=== PATIENT | female | born 1950 | race Caucasian/White ===

== ENCOUNTER 2022-03-12 13:43 | Emergency (ER) | payer MEDICARE, BC, SELFPAY ==
[2022-03-12 15:00] VITALS: BP 178/114; PULSE 104; RESP 22; TEMP 36.8; O2SAT 97; BMI 20.8
--- NOTE | 2022-03-12 15:13 | HMH.EDUTC ---
[facility] Disposition Clinical Impression: Vision disturbance Disposition: Still a Patient Condition on Discharge: Fair Additional Instructions: At this time you have been accepted for transfer at the [facility]. Please drive there for continued evaluation by ophthalmology this afternoon. Referrals: Bereket Dye [Primary Care Provider] - Forms: Transfer Record - ED Time of Disposition: 15:26 Medical Decision Making - Kobi Inquiry Pt receiving controlled substance: No Kobi was queried for this patient: No Vital Signs: 03/12/22 15:00 03/12/22 15:22 03/12/22 15:45 Temperature 98.3 F 98 F Temperature Source Oral Oral Pulse Rate 71 Pulse Rate [Right Brachial] 104 H 75 Respiratory Rate 22 16 Blood Pressure 154/80 H Blood Pressure [Right Arm] 178/114 H 154/80 H Blood Pressure Mean [Right Arm] 135 104 Blood Pressure Source [Right Arm] Automatic Cuff Blood Pressure Position Blood Pressure Position [Right Arm] Sitting Sitting 02 Sat by Pulse Oximetry 97 98 99 Oxygen Delivery Method Room Air Room Air 03/12/22 16:31 Temperature 98 F Temperature Source Oral Pulse Rate 78 Pulse Rate [Right Brachial] Respiratory Rate 16 Blood Pressure 177/94 H Blood Pressure [Right Arm] Blood Pressure Mean [Right Arm] Blood Pressure Source [Right Arm] Blood Pressure Position Sitting Blood Pressure Position [Right Arm] 02 Sat by Pulse Oximetry Oxygen Delivery Method Room Air Medical Decision Narrative: Patient complains of changes in vision in left eye reports started yesterday seeing black spots, floaters, cobwebs/spider leg like squiggly lines in vison and blood pressure found to be elevated Discussed with patient and recommended transfer to the ED for further evaluation and exam and patient agreed Talked with Cynthia SPICER and patient was moved to the ED [facility] HPI - General Stated complaint: feels something in eye Time Seen by Provider: 03/12/22 15:05 Mode of Arrival: Ambulatory Source of Information: Patient, Spouse Limitations: No Limitations Description of Symptoms (Recalled from Triage Doc. by RN): PATIENT STATES THAT SHE WALKING THROUGH THE YARD ON 02/28/22 AND STATES SHE FELT A SNAP IN HER RIGHT LEG. TODAY SHE C/O SWELLING AND BRUSING FROM HER KNEE DOWN TO HER FOOT. SHE ALSO STATES THAT STARTING LAST NIGHT SHE STARTED SEEING SPOTS AND SQUIGGLY LINES/ SPIDER LEGS IN LEFT EYE. HEENT Symptoms (Recalled from RN notes): Yes Resp Symptoms (Recalled from RN notes): No Skin Symptoms (Recalled from RN notes): No MS Symptoms (Recalled from RN notes): Yes Functional Status (Recalled from RN notes): WNL - History of Present Illness Provider Complaint: Patient states that a week or two ago she was walking in the yard and felt like the back of her calf seized up States that she had bruising and pain in her right lower leg from knee down to foot States that she seen someone in Primary Care where they go and they did xray and told her it was a deep tissue bruise States that bruising has continued and not got any better States that yesterday she woke up and she was black spots in her left eye, States that as the day went on it she felt like there was a vail over her eyes like spider legs in her left eye with squiggly lines States that she isnt having any pain in the eye just aggrivating her where she sees the lines - Related Data Allergies Allergy/AdvReac Type Severity Reaction Status Date / Time No Known Allergies Allergy Verified 03/12/22 15:10 - Worker's Comp Is this a Worker's Comp case?: No [facility] History - Hepatitis A Screen Attestation statement:: This patient has been screened for Hepatitis A risk factors. I have reviewed the patient's past medical history: Yes ROS Obtained: Yes All systems reviewed & no additional complaints, Yes Systems reviewed as appropriate & no additional complaints - Constitutional Constitutional: Reports system reviewed and no additional complaints, exce
--- NOTE | 2022-03-12 15:18 | PC.NURSE ---
PATIENT SENT TO ER PER Jerardo BARRERA APRN FOR FURTHER EVALUATION. REPORT GIVEN TO Amisha MUNIZ RN BY Jerardo BARRERA APRN
[2022-03-12 15:22] VITALS: BP 154/80; PULSE 75; RESP 16; TEMP 36.6; O2SAT 98; BMI 18.3
--- NOTE | 2022-03-12 15:35 | PC.NURSE ---
LEIF BRITO at for patient eval
[2022-03-12 15:45] VITALS: BP 154/80; PULSE 71; O2SAT 99
--- NOTE | 2022-03-12 15:53 | HMH.EDGENADL ---
ED Disposition Clinical Impression: Vision disturbance Disposition: Still a Patient Condition on Discharge: Good Additional Instructions: At this time you have been accepted for transfer at the [facility]. Please drive there for continued evaluation by ophthalmology this afternoon. Referrals: Bereket Dye [Primary Care Provider] - - Critical Care Critical Care Time: No Attestation: On 03/12/22, the high probability of a clinically significant, sudden or life threatening deterioration of the following system(s) required my full and direct attention, intervention and personal management. The time I documented below is in addition to time spent performing reported procedures but includes the following listed in this critical care notation. Medical Decision Making - Kobi Inquiry Pt receiving controlled substance: No Vital Signs: 03/12/22 15:00 03/12/22 15:22 Temperature 98.3 F 98 F Temperature Source Oral Oral Pulse Rate [Right Brachial] 104 H 75 Respiratory Rate 22 16 Blood Pressure [Right Arm] 178/114 H 154/80 H Blood Pressure Mean [Right Arm] 135 104 Blood Pressure Source [Right Arm] Automatic Cuff Blood Pressure Position [Right Arm] Sitting Sitting 02 Sat by Pulse Oximetry 97 98 Oxygen Delivery Method Room Air Room Air Medical Decision Narrative: In summary this is a 71-year-old female with past medical history described above who presents emergency department for acute left visual change. Patient is hemodynamically stable nontoxic-appearing upon arrival with a nonfocal neurologic exam. Acute visual deficit in the left eye with 20/200 vision, 20/25 in the right eye corrected. Fluorescein uptake was negative. Intraocular pressure could not be performed due to [place]-Pen being broken. The case was discussed with ophthalmology and they will accept the patient as an ED to ED transfer for further evaluation at this time at the [facility]. General Adult HPI - General Chief complaint: Eye Problems Stated complaint: feels something in eye Time Seen by Provider: 03/12/22 15:45 Mode of Arrival: Ambulatory Source of Information: Patient, Spouse Limitations: No Limitations Description of Symptoms (Recalled from ER Triage Doc. by RN): PATIENT STATES THAT SHE WALKING THROUGH THE YARD ON 02/28/22 AND STATES SHE FELT A SNAP IN HER RIGHT LEG. TODAY SHE C/O SWELLING AND BRUSING FROM HER KNEE DOWN TO HER FOOT. SHE ALSO STATES THAT STARTING LAST NIGHT SHE STARTED SEEING SPOTS AND SQUIGGLY LINES/ SPIDER LEGS IN LEFT EYE. - History of Present Illness HPI narrative: Patient is a 71-year-old female with no pertinent past medical history presents emergency department for evaluation of left eye irregularities. Onset was acute, occurring yesterday morning. She has had waxing and waning floaters in her left visual field of her left eye as well as intermittent ruffled vision on her left. Symptoms have waxed and waned however due to progressive worsening nature she presents here for continued evaluation. Patient denies acute difficulty with speech, difficulty moving arms and legs. She does have a subacute bruise on her right lower extremity which is healing from approximately 2 weeks ago. No other acute complaints at this time. - Related Data Allergies Allergy/AdvReac Type Severity Reaction Status Date / Time No Known Allergies Allergy Verified 03/12/22 15:10 [facility] History - Hepatitis A Screen Attestation statement:: This patient has been screened for Hepatitis A risk factors. I have reviewed the patient's past medical history: Yes ROS Obtained: Yes All systems reviewed & no additional complaints Physical Exam - General General appearance: alert, in no apparent distress - Head Head exam: atraumatic - Eye Eye exam: Present: normal appearance, PERRL, EOMI, other (No fluorescein uptake) - ENT ENT exam: Present: mucous membranes moist - Neck Neck exam: Present: normal inspec
--- NOTE | 2022-03-12 15:53 | PC.NURSE ---
Contacting [facility] at this time
--- NOTE | 2022-03-12 15:56 | PC.NURSE ---
Dr. Flores speaking with Dr. Wei, ophthalmology at this time
--- NOTE | 2022-03-12 15:56 | PC.NURSE ---
visual acuity rt eye 20/25 -2 with correction, lt 20/200 -1 with correction
--- NOTE | 2022-03-12 16:30 | PC.NURSE ---
report called to tobin maria
[2022-03-12 16:31] VITALS: BP 177/94; PULSE 78; RESP 16; TEMP 36.6; O2SAT 98
== END 2022-03-12 16:33 | disposition still patient (30) ==
LOC: UTC 13:54 → ER 15:19
PROVIDERS: Emergency Provider Nurse Practitioner; PCP Family Medicine
DX: H53.9 Unspecified visual disturbance (principal)
CPT/HCPCS: 99282

== ENCOUNTER → 2022-04-25 15:32 | Outpatient (CLI) | payer MEDICARE, BC, SELFPAY ==
[2022-04-25 14:58] LABS: Basophils % 0.6 % (0.1-2.0); Eosinophils # 0.1 K/mm3 (0.0-0.4); Eosinophils % 1.1 % (0.1-12.0); Hematocrit 45.4 % (37.0-47.0); Hemoglobin 14.1 g/dL (12.2-16.2); Lymphocytes # 1.9 K/mm3 (0.7-4.5); Mean Corpuscular Hemoglobin 30.2 pg (27.0-31.2); Mean Corpuscular Volume 97.4 fl (81-99); Mean Platelet Volume 7.2 fl (7.4-10.4); Monocytes # 0.3 K/mm3 (0.1-1.0); Neutrophils % 64.3 % (37.0-80.0); Platelet Count 303 K/mm3 (142-424); Red Blood Count 4.66 M/mm3 (4.20-5.40); Red Cell Distribution Width 12.4 % (11.5-17.5); White Blood Count 6.2 K/mm3 (4.8-10.8)
[2022-04-25 15:03] LABS: Alanine Aminotransferase 25 U/L (12-78); Albumin Level 4.8 g/dl (3.5-5.0); Albumin/Globulin Ratio 1.7 (1.1-1.8); Alkaline Phosphatase 98 U/L (38-126); Anion Gap 13.7 mEq/L (5-15); Aspartate Amino Transferase 43 U/L (14-36); Bilirubin,Total 0.3 mg/dl (0.2-1.3); Blood Urea Nitrogen 17 mg/dl (7-17); Calcium 10.1 mg/dl (8.4-10.2); Carbon Dioxide 30 mmol/L (22.0-30.0); Chloride 95 mmol/L (98-107); Cholesterol 207 mg/dl (140-200); Estimated Glomerular Filt Rate 121 ml/min (>60); GFR (African American) 147 ML/MIN (>60); Globulin 2.9 g/dL (1.3-3.2); Glucose 90 mg/dl (74-100); Potassium 3.7 mmoL/L (3.5-5.1); Sodium 135 mmol/L (136-145); Total Protein,Serum 7.7 g/dl (6.3-8.2); Triglycerides 71 mg/dl (30-150); VLDL Cholesterol 14 mg/dL (0-40)
[2022-04-25 15:10] LABS: HDL Cholesterol 113 mg/dl (40-60)
[2022-04-25 15:20] LABS: Direct LDL Cholesterol 77.51 mg/dL (100-129)
[2022-04-25 15:33] LABS: Thyroid Stimulating Hormone 1.01 uIU/mL (0.465-4.68)
== END ==
PROVIDERS: PCP Family Medicine; Visit Provider Family Medicine
DX: I10 Essential (primary) hypertension (principal); Z00.00 Encounter for general adult medical examination without abnormal findings; Z79.899 Other long term (current) drug therapy
CPT/HCPCS: 80053; 80061; 84443; 85025

== ENCOUNTER 2022-08-16 08:15 | Emergency (ER) | payer MEDICARE, BC, SELFPAY ==
[2022-08-16] VITALS (11 sets, daily range): BP systolic 118–144; BP diastolic 62–71; PULSE 77–87; RESP 18–19; TEMP 37; O2SAT 99–100; BMI 18.1
[2022-08-16 08:35] LABS: Basophils # 0.1 K/mm3 (0-0.2); Basophils % 0.6 % (0.1-2.0); Eosinophils # 0.1 K/mm3 (0.0-0.4); Eosinophils % 0.5 % (0.1-12.0); Hematocrit 41.7 % (37.0-47.0); Hemoglobin 14.1 g/dL (12.2-16.2); Lymphocytes # 0.9 K/mm3 (0.7-4.5); Lymphocytes % 8.4 % (10-50); Mean Corpuscular HGB Conc 33.7 g/dL (31.8-35.4); Mean Corpuscular Hemoglobin 31.7 pg (27.0-31.2); Mean Corpuscular Volume 94.2 fl (81-99); Mean Platelet Volume 7.6 fl (7.4-10.4); Monocytes # 0.2 K/mm3 (0.1-1.0); Monocytes % 1.6 % (1.7-9.3); Neutrophils # 9.2 K/mm3 (1.8-7.8); Neutrophils % 88.9 % (37.0-80.0); Platelet Count 350 K/mm3 (142-424); Red Blood Count 4.43 M/mm3 (4.20-5.40); White Blood Count 10.4 K/mm3 (4.8-10.8)
--- NOTE | 2022-08-16 08:35 | CT_ITS ---
FINAL REPORT TECHNIQUE: Thin section axial images were obtained through the abdomen after intravenous contrast. Reconstruction images were obtained from the axial data. Exam was performed using dose reduction techniques. CLINICAL HISTORY: right-sided abdominal pain COMPARISON: none FINDINGS: The lung bases are clear. The liver is homogeneous. The gallbladder is present. The spleen, adrenal glands, and pancreas are unremarkable. There is very mild hydronephrosis and hydroureter to the level of the pelvis. No obstructing stone identified. Abdominal GI tract is without small-bowel obstruction. There is no abdominal lymphadenopathy or ascites. The uterus is absent. There is a moderate to large amount of retained stool in the proximal portions of the colon and in the rectum. There is fecalization of the distal small bowel loops. There are decompressed thick-walled small bowel loops in the pelvis. The appendix is not visualized. The more proximal small bowel loops are not dilated. There is mesenteric edema and mesenteric fluid within the pelvis. The sigmoid colon is mildly thickened. There is no pelvic lymphadenopathy or ascites. No acute osseous abnormalities identified. IMPRESSION: Thickened decompressed small bowel loops in the pelvis with associated mesenteric edema and fluid. Etiology is unclear. This could be related to infectious or inflammatory enteritis. Ischemia is felt unlikely. Appendix is not visualized. Appendicitis is difficult to completely exclude. Mild right hydronephrosis and hydroureter to the level of inflammatory bowel loops in the pelvis. Reviewed, Interpreted and Dictated by Zeynep Stone MD Transcribed by Lucy Stallworth Authenticated and . [facility]
--- NOTE | 2022-08-16 08:35 | US_ITS ---
FINAL REPORT TECHNIQUE: Sonographic images of the right upper quadrant were obtained. CLINICAL HISTORY: R sided abdo pain FINDINGS: The liver is homogeneous. There is no focal hepatic lesion or intrahepatic biliary dilatation. The gallbladder is well filled. There are no gallstones. There is no pericholecystic fluid collection or gallbladder wall thickening. The common duct measures 4 mm which is within normal limits. The pancreatic tail is partially obscured by bowel gas. Otherwise, it has a normal appearance. The right kidney measures 8.9 cm in [id number] length. No mass is identified. There is very mild hydronephrosis. There is no right upper quadrant ascites. IMPRESSION: No gallstones. Normal common duct. Mild hydronephrosis of uncertain etiology. Reviewed, Interpreted and Dictated by Zeynep Stone MD Transcribed by Cynthia Mcallister Authenticated and [facility]
[2022-08-16 08:38] LABS: Chloride 100 mmol/L (98-107); MANUAL DIFFERENTIAL MANUAL DIFFERENTIAL (MANUAL DIFF); Potassium 3.7 mmoL/L (3.5-5.1); Sodium 135 mmol/L (136-145)
[2022-08-16 08:41] LABS: Alanine Aminotransferase 20 U/L (12-78); Albumin Level 4.9 g/dl (3.5-5.0); Albumin/Globulin Ratio 1.5 (1.1-1.8); Alkaline Phosphatase 80 U/L (38-126); Amylase 102 U/L (30-110); Anion Gap 11.7 mEq/L (5-15); Aspartate Amino Transferase 33 U/L (14-36); Bilirubin,Total 0.5 mg/dl (0.2-1.3); Blood Urea Nitrogen 16 mg/dl (7-17); Calcium 9.9 mg/dl (8.4-10.2); Carbon Dioxide 27 mmol/L (22.0-30.0); Creatinine Clearance Estimated 41 mL/min (50-200); Estimated Glomerular Filt Rate 98 ml/min (>60); GFR (African American) 119 ML/MIN (>60); Globulin 3.3 g/dL (1.3-3.2); Glucose 118 mg/dl (74-100); Lipase 102 U/L (23-300); Total Protein,Serum 8.2 g/dl (6.3-8.2)
[2022-08-16 08:45] LABS: Lymphocytes % 9 % (10-50); Monocytes % 2 % (2-9); Neutrophils % 89 % (42-76); Total Cells Counted 100
[2022-08-16 08:46] LABS: Platelet Estimate Normal; RBC Morphology Normal
--- NOTE | 2022-08-16 08:48 | HMH.EDGENADL ---
Discharge Plan Disposition Patient Disposition: Home, Self-Care Condition: Good Prescriptions Prescriptions: New ciprofloxacin HCl [Cipro] 500 mg tablet 500 mg PO BID Qty: 20 0RF metronidazole 500 mg tablet 500 mg PO TID Qty: 30 0RF No Action hydrochlorothiazide 25 mg tablet 25 mg PO DAILY amlodipine-benazepril [Lotrel] 10-20 mg capsule 1 cap PO DAILY Referrals Follow up/Referrals: Stewart Wood MD [Primary Care Provider] - See instructions Activity Restrictions/Add. Instructions Additional Instructions/Restrictions: Cipro and Flagyl as prescribed. See Dr. Wood on Friday. Additional instructions for ABDOMINAL PAIN: Return immediately if worsening abdominal pain, vomiting, shortness of breath, fever, vomiting of blood or abdominal distention. Urine culture has been performed, results generally take 2 to 3 days. Follow-up the results of this test with your primary care provider within 2 to 3 days. Clinical Impressions Clinical Impression: Enteritis Instructions Patient Instructions: DI for Acute Abdominal Pain, DI for Enteritis Discharge ED Provider: Rajesh Lopez General Adult HPI General Chief complaint: Abdominal Pain Stated complaint: possible Galbladder attack Time Seen by Provider: 08/16/22 08:29 Mode of Arrival: Ambulatory Limitations: No Limitations Description of Symptoms (Recalled from ER Triage Doc. by RN): PT REPORTS GALLBLADDER ATTACK PT REPORT RIGHT SIDED ABDOMINAL PAIN THAT RADIATES TO BACK, WITH CLEAR EMESIS. STARTED ABOUT 0230 THIS AM, PT HAD SIMILAR EPISODE LAST SEPTEMBER. STATES GALLBLADDER HAS SLUDGE, NO STONES History of Present Illness HPI narrative: Patient states she woke up at 2:30 AM with right-sided abdominal pain that radiates to her back. She said she vomited clear emesis, no food in it. She says that it feels the same as when she had a gallbladder attack last year. Her abdomen feels bloated. She denies diarrhea or constipation or urinary symptoms. She denies fever. States that she was seen at [facility] in [place] and had a gallbladder ultrasound and blood work. She says her gallbladder ultrasound showed sludge, but no stones. She says she did not have a HIDA scan or any other testing. She did not have any CAT scans. She says that she went on a diet because of her gallbladder, she says she did not want to have surgery. She has not had a problem since then. She last ate last night. Related Data Home Medications Medication Instructions Recorded Confirmed amlodipine 10 mg-benazepril 20 mg 1 cap PO DAILY High blood pressure 08/16/22 08/16/22 capsule (Lotrel) hydrochlorothiazide 25 mg tablet 25 mg PO DAILY High blood pressure 08/16/22 08/16/22 Previous Rx's Medication Instructions Recorded ciprofloxacin HCl 500 mg tablet 500 mg PO BID #20 tabs 08/16/22 (Cipro) metronidazole 500 mg tablet 500 mg PO TID #30 tabs 08/16/22 Allergies Allergy/AdvReac Type Severity Reaction Status Date / Time No Known Allergies Allergy Verified 06/27/22 09:08 [facility] Disclaimer: The information contained in this section may have been updated after the patient was seen, as this information can be updated by other users. Surgical History H/O total hysterectomy History of knee replacement Hx of appendectomy Social History Smoking Status: Never smoker alcohol intake: never current occupational status: retired Travel in the last 8 weeks: None ROS Obtained: Yes Systems reviewed as appropriate & no additional complaints except as documented Constitutional Constitutional: Denies fever(s), Denies headache(s) and Denies weakness ENT Ears, Nose, Mouth, and Throat: Denies headache(s), Denies nasal discharge and Denies sore throat Cardiovascular Cardiovascular: Denies chest pain Respiratory Respiratory: Denies shortne
--- NOTE | 2022-08-16 08:54 | PC.NURSE ---
PT TO CT THEN TO US AT THIS TIME
--- NOTE | 2022-08-16 09:32 | PC.NURSE ---
PT RETURNED FROM CT AND US
--- NOTE | 2022-08-16 09:40 | PC.NURSE ---
UA COLLECTED AND SENT TO LAB. PT WITHOUT NEEDS OR CONCERNS. AT BEDSIDE. CALL LIGHT WITHIN REACH
[2022-08-16 09:42] LABS: Microscopic, Urine URINE MICROSCOPIC (MICROSCOPIC)
[2022-08-16 09:46] LABS: Appearance,Urine CLEAR (Clear); Bilirubin,Urine Negative (Negative); Blood, Urine TRACE-I (Negative); Color,Urine YELLOW (Yellow); Glucose,Urine (UA) Negative (Negative); Ketones,Urine Negative (Negative); Leukocyte Esterase,Urine 1+ (Negative); Nitrate,Urine Negative (Negative); PH,Urine 8.5 (5.0-8.5); Protein,Urine Negative (Negative); Specific Gravity, Urine 1.015 (1.005-1.030); Urobilinogen,Urine 0.2 EU/dl (0.2)
[2022-08-16 10:04] LABS: Amorphous Sediment,Urine 2+ /lpf; Bacteria,Urine Trace /lpf; WBC,Urine Occasional #/hpf (0-3)
--- NOTE | 2022-08-16 10:13 | PC.NURSE ---
280 ML POST VOID PER BLADDER SCAN, NOTIFIED
--- NOTE | 2022-08-16 10:50 | PC.NURSE ---
DR LANG AT BEDSIDE TO UPDATE PT AND FAMILY
--- NOTE | 2022-08-16 11:03 | PC.NURSE ---
PT MEDICATED PER EMAR, NO FURTHER NEEDS AT THIS TIME
--- NOTE | 2022-08-16 11:26 | PC.NURSE ---
Called for surgeon rehabilitation program coordinator for consult with Dr Lopez
--- NOTE | 2022-08-16 11:29 | PC.NURSE ---
DR LANG SPEAKING WITH DR KENNEDY
--- NOTE | 2022-08-16 11:34 | PC.NURSE ---
DR LANG AT BEDSIDE TO UPDATE PT AFTER SPEAKING WITH DR KENNEDY
--- NOTE | 2022-08-16 11:40 | PC.NURSE ---
Calling Dr Pascual Hdez, Gastro, for consult with Dr Lopez about patient.
--- NOTE | 2022-08-16 12:46 | PC.NURSE ---
Dr Hdez has not returned phone call, have tried to call back 2 more times, with no answer at office.
--- NOTE | 2022-08-16 13:04 | PC.NURSE ---
We were given Dr Hdez cell number [phone], called it left message to call ER and left number. Also called main office number [phone], called several times and left message to call ER, left number again.
--- NOTE | 2022-08-16 13:16 | PC.NURSE ---
Dr Lopez talking to Dr Wood about patient.
--- NOTE | 2022-08-16 13:17 | PC.NURSE ---
Called Dr Hdez again with no answer in office. No answer, no call back from office.
[2022-08-16 13:56] LABS: Erythrocyte Sedimentation Rate 40 mm/hr (0-30)
== END 2022-08-16 13:39 | disposition home or self-care (01) ==
PROVIDERS: Emergency Provider Emergency Medicine; PCP Family Medicine
DX: A09 Infectious gastroenteritis and colitis, unspecified (principal); Z90.710 Acquired absence of both cervix and uterus; Z96.659 Presence of unspecified artificial knee joint; Z90.49 Acquired absence of other specified parts of digestive tract
CPT/HCPCS: 74177; 76705; 80053; 81001; 82150; 83690; 85007; 85025; 85651; 86140; 87086; 96374; 96375; 96376; 99285; J2405; Q9967

== ENCOUNTER → 2022-08-20 10:02 | Outpatient (CLI) | payer MEDICARE, BC, SELFPAY ==
[2022-08-20 10:12] LABS: Adenovirus F 40/41, stool Not Detected (NotDetected); Astrovirus Not Detected (NotDetected); Campylobacter Not Detected (NotDetected); Clostridium Difficile A/B, PCR Not Detected (NotDetected); Cryptosporidium Not Detected (NotDetected); Cyclospora Cayetanesis Not Detected (NotDetected); Entamoeba histolytica Not Detected (NotDetected); Enteroaggregative E coli Not Detected (NotDetected); Enteropathogenic E coli Not Detected (NotDetected); Enterotoxigenic E coli Not Detected (NotDetected); Giardia lamblia Not Detected (NotDetected); Norovirus Not Detected (NotDetected); Plesimonas Shigalloides, PCR Not Detected (NotDetected); Rotavirus A Not Detected (NotDetected); Salmonella, PCR Not Detected (NotDetected); Sapovirus Not Detected (NotDetected); Shiga-like toxin E coli Not Detected (NotDetected); Shigella Enterovasive E coli Not Detected (NotDetected); Vibrio Cholerae Not Detected (NotDetected); Vibrio, PCR Not Detected (NotDetected); Yersinia Entercolitica, PCR Not Detected (NotDetected)
== END ==
PROVIDERS: PCP Emergency Medicine; Visit Provider Emergency Medicine
DX: R19.7 Diarrhea, unspecified (principal)
CPT/HCPCS: 87506

== ENCOUNTER 2022-10-02 09:17 | Day surgery (SDC) | payer MEDICARE, BC, SELFPAY ==
[2022-09-09 12:29] VITALS: BMI 18.1
[2022-10-02 09:44] VITALS: BP 149/75; PULSE 83; RESP 20; TEMP 36.6; O2SAT 98
--- NOTE | 2022-10-02 10:20 | EXP.ANES.CKL ---
[facility] Disclaimer: The information contained in this section may have been updated after the patient was seen, as this information can be updated by other users. Medical History Hypertension Surgical History H/O total hysterectomy History of knee replacement Hx of appendectomy Family History Other Family history of heart disease Family history of hypertension Social History Smoking Status: Never smoker alcohol intake: never substance use type: denies use current occupational status: retired Travel in the last 8 weeks: None household members: spouse housing: house lives independently: Yes marital status: education level: high school caffeine: Yes special sasha needs: No agree to transfusion: No do you feel safe at home: Yes victim of physical abuse: No victim of emotional abuse: No victim of sexual abuse: No would you like helpful sources: No [facility] Anesthesia Checklist Patient Identification Patient Identification: Arm Band and Verbal (Name & ) Structural Data Admitted From: Home Planned Operative Procedure/s: Colonoscopy Consent for Planned Operative Procedure(s) Verified: Yes NPO Status Verified Time NPO: 00:00 Airway Assessment C-Spine Mobility Assessed: Yes TMJ Mobility Assessed: Yes Dentition: Good Dentition Neurological Assessment Level of Consciousness: Awake Hx Seizures: No Numbness or tingling in extremities: No Anesthesia Plan Anesthesia Risk discussed: Yes Anesthesia Plan: Verified ASA Class: II Anesthesia Type: MAC
[2022-10-02 10:28] VITALS: O2SAT 98
--- NOTE | 2022-10-02 10:48 | HMH.SCOPE ---
Procedure: Date: 10/02/22 Patient Date of :: 1950 Procedure Performed:: Colonoscopy Indications:: The patient is a 71 year old who presents for surveillance colonoscopy for a history of colon polyps. The patient also has chronic intermittent lower abdominal pain. Performing Provider:: Vincent Chinchilla MD Referring Provider:: Stewart Wood MD Sedation:: See RN records Procedure:: After placing the patient in the left lateral decubitus position, the colonoscopy was gently inserted into the rectum and under direct visualization advanced to the cecum which was identified by transillumination in the right lower quadrant, identification of the ileocecal valve, appendiceal orifice, and cecal strap. Color, texture, mucosa, and anatomy of the colon were carefully examined with the scope. Findings:: Anal canal: normal Rectum: Internal hemorrhoids, hypertrophic papilla Sigmoid colon: diverticulosis Descending colon: normal without polyps or inflammatory changes Splenic flexure: normal Transverse colon: normal without polyps or inflammatory changes Hepatic flexure: normal Ascending colon: normal without polyps or inflammatory changes Cecum: normal Terminal ileum: not visualized Impression: Sigmoid diverticulosis Tortuous sigmoid and descending colon Recommendations:: Higher fiber diet Dicyclomine 10 mg three to four times per day as needed (prescription was given to patient) Repeat colonoscopy in 5 years Complications:: None Estimated blood obtained (mL): 0
[2022-10-02 10:50] VITALS: BP 77/47; PULSE 73; RESP 16; TEMP 36.1; O2SAT 98
[2022-10-02 11:00] VITALS: BP 75/48; PULSE 79; RESP 17; O2SAT 98
[2022-10-02 11:10] VITALS: BP 92/45; PULSE 76; RESP 16; O2SAT 96
[2022-10-02 11:20] VITALS: BP 108/65; PULSE 75; RESP 16; TEMP 36.4; O2SAT 99
== END 2022-10-02 11:20 | disposition home or self-care (01) ==
PROVIDERS: PCP Family Medicine; Visit Provider Internal Medicine
PROC: 0DJD8ZZ Inspection of Lower Intestinal Tract, Via Natural or Artificial Opening Endoscopic (ICD-10-PCS; CPT 45378; principal; 2022-10-02 10:30)
DX: R10.30 Lower abdominal pain, unspecified (principal); K57.30 Diverticulosis of large intestine without perforation or abscess without bleeding; K64.8 Other hemorrhoids; Z79.899 Other long term (current) drug therapy; Z86.010 Personal history of colon polyps
CPT/HCPCS: G0105

== ENCOUNTER 2022-10-19 21:49 | Observation (INO) | payer MEDICARE, BC, SELFPAY ==
[2022-10-19 21:51] VITALS: BP 153/76; PULSE 99; RESP 17; TEMP 37.1; O2SAT 99; BMI 18.1
--- NOTE | 2022-10-19 21:59 | CT_ITS ---
PROCEDURE INFORMATION: Exam: CT Abdomen And Pelvis With Contrast Exam date and time: 10/19/2022 11:35 PM Age: 71 years old Clinical indication: Abdominal pain; Additional info: Abd pain rght sided TECHNIQUE: Imaging protocol: Computed tomography of the abdomen and pelvis with contrast. Radiation optimization: All CT scans at this facility use at least one of these dose optimization techniques: automated exposure control; mA and/or kV adjustment per patient size (includes targeted exams where dose is matched to clinical indication); or iterative reconstruction. Contrast material: ISOVUE; Contrast volume: 75 ml; Contrast route: IV; REPORTING DATA: Count of CT and Cardiac NM exams in prior 12 months: This patient has received [address] and 0 known cardiac nuclear medicine studies in the 12 months prior to the current study. COMPARISON: CT ABDOMEN PELVIS W CON 08/16/2022 9:22 AM FINDINGS: Liver: Normal. No mass. Gallbladder and bile ducts: Normal. No calcified stones. No ductal dilation. Pancreas: Normal. No ductal dilation. Spleen: Normal. No splenomegaly. Adrenal glands: Normal. No mass. Kidneys and ureters: Mild prominence of the intrarenal collecting structures of the right kidney. No evidence for ear urinary tract calculi. Small 3 mm hypodensity right kidney too small to characterize. Stomach and bowel: Dilated fecalized small bowel loops in the right lower quadrant. Beak like narrowing of small bowel axial image 36/64-66 right lower quadrant. Possible 2nd point transition with small bowel narrowing axial image 3/66. Retained stool in the colon. Scattered colonic diverticula. Appendix: No evidence of appendicitis. Intraperitoneal space: Mesenteric edema/infiltration in the small bowel mesentery. Small amount of fluid in the small bowel mesentery axial image 3/65. Whirling pattern of the vessels in the mesentery image 3/62-66. Vasculature: Unremarkable. No abdominal aortic aneurysm. Lymph nodes: Unremarkable. No enlarged lymph nodes. Urinary bladder: Unremarkable as visualized. Reproductive: Unremarkable as visualized. Bones/joints: Unremarkable. No acute fracture. Soft tissues: Unremarkable. IMPRESSION: 1. No free air or fluid or adenopathy. 2. Dilated fecalized small bowel loops in the right lower quadrant. 3. Mesenteric edema/infiltration in the small bowel mesentery. Small amount of fluid in the small bowel mesentery axial image 3/65. 4. Whirling pattern of the vessels in the mesentery image -. 5. Beak like narrowing of small bowel axial image 36/64-66 right lower quadrant. 6. Possible 2nd point transition with small bowel narrowing axial image . 7. Constellation of findings worrisome for high-grade small bowel obstruction due to twisting/small bowel volvulus with possible concomitant closed-loop obstruction. Surgical consult recommended and close observation. Other (less critical/noncritical/incidental) findings as above; please refer to the body of report for further details. COMMENTS: Consistent with the [employer]'s Incidental Findings Committee white paper (J Am Jenni Radiol 2018): Any incidental renal lesion less than 1 cm or classified as too small to characterize, or any incidental cystic renal lesion characterized as simple-appearing, is likely benign. No follow-up imaging is recommended for these lesions per consensus recommendations based on imaging criteria.
[2022-10-19 22:01] VITALS: BP 140/107; PULSE 96; RESP 18; O2SAT 100; BMI 25.6
[2022-10-19 22:17] LABS: Basophils # 0.1 K/mm3 (0-0.2); Basophils % 0.6 % (0.1-2.0); Eosinophils % 0.4 % (0.1-12.0); Hemoglobin 13.6 g/dL (12.2-16.2); Lymphocytes # 1.4 K/mm3 (0.7-4.5); Mean Corpuscular HGB Conc 33.9 g/dL (31.8-35.4); Mean Corpuscular Volume 91.5 fl (81-99); Mean Platelet Volume 7.4 fl (7.4-10.4); Monocytes # 0.3 K/mm3 (0.1-1.0); Monocytes % 3.1 % (1.7-9.3); Neutrophils # 7.7 K/mm3 (1.8-7.8); Neutrophils % 80.9 % (37.0-80.0); Platelet Count 327 K/mm3 (142-424); Red Blood Count 4.37 M/mm3 (4.20-5.40); Red Cell Distribution Width 12.7 % (11.5-17.5); White Blood Count 9.5 K/mm3 (4.8-10.8)
[2022-10-19 22:20] VITALS: BP 153/76; PULSE 93; RESP 20; O2SAT 100
[2022-10-19 22:21] LABS: Chloride 93 mmol/L (98-107); Potassium 3.5 mmoL/L (3.5-5.1); Sodium 130 mmol/L (136-145)
[2022-10-19 22:23] LABS: Alanine Aminotransferase 23 U/L (12-78); Aspartate Amino Transferase 33 U/L (14-36); Blood Urea Nitrogen 14 mg/dl (7-17); Creatinine Clearance Estimated 51 mL/min (50-200); Estimated Glomerular Filt Rate 98 ml/min (>60); GFR (African American) 119 ML/MIN (>60)
[2022-10-19 22:24] LABS: Albumin/Globulin Ratio 1.8 (1.1-1.8); Alkaline Phosphatase 85 U/L (38-126); Anion Gap 13.5 mEq/L (5-15); Bilirubin,Total 0.4 mg/dl (0.2-1.3); Calcium 9.9 mg/dl (8.4-10.2); Carbon Dioxide 27 mmol/L (22.0-30.0); Globulin 2.8 g/dL (1.3-3.2); Glucose 131 mg/dl (74-100); Total Protein,Serum 7.8 g/dl (6.3-8.2)
[2022-10-19 22:28] LABS: Lactic Acid 2.1 mmol/L (0.7-2.1)
[2022-10-19 22:31] VITALS: BP 154/134; PULSE 94; RESP 18; O2SAT 100
[2022-10-19 23:00] VITALS: BP 146/77; PULSE 92; RESP 16; O2SAT 99
[2022-10-19 23:44] LABS: Microscopic, Urine URINE MICROSCOPIC (MICROSCOPIC)
[2022-10-19 23:49] LABS: Appearance,Urine CLEAR (Clear); Bilirubin,Urine Negative (Negative); Blood, Urine Negative (Negative); Color,Urine YELLOW (Yellow); Glucose,Urine (UA) Negative (Negative); Ketones,Urine Negative (Negative); Leukocyte Esterase,Urine Negative (Negative); Nitrate,Urine Negative (Negative); Protein,Urine Negative (Negative); Urobilinogen,Urine 0.2 EU/dl (0.2)
[2022-10-20 00:01] LABS: Amorphous Sediment,Urine 3+ /lpf; Bacteria,Urine Trace /lpf; RBC,Urine Occasional #/hpf (0-3)
--- NOTE | 2022-10-20 00:34 | HMH.EDGENADL ---
Discharge Plan Disposition Patient Disposition: Admitted As Inpatient Condition: Fair Chief Complaint: Abdominal Pain Prescriptions Prescriptions: No Action dicyclomine 20 mg tablet 20 mg PO TID PRN (Reason: abdominal pain) Qty: 90 2RF hydrochlorothiazide 25 mg tablet 25 mg PO DAILY amlodipine-benazepril [Lotrel] 10-20 mg capsule 1 cap PO DAILY Referrals Follow up/Referrals: Stewart Wood MD [Primary Care Provider] - See instructions Clinical Impressions Clinical Impression: Small bowel obstruction Instructions Patient Instructions: DI for Acute Abdominal Pain Discharge ED Provider: Chris Brown General Adult HPI General Chief complaint: Abdominal Pain Stated complaint: Pain R side Time Seen by Provider: 10/20/22 00:38 Mode of Arrival: Family Vehicle Source of Information: Patient Limitations: No Limitations Description of Symptoms (Recalled from ER Triage Doc. by RN): Pt c/o RLQ ABD pain that began shortly after eating a chili-dog. States she was told she had sludge in her gallbladder recently. She also had a colonoscopy 1 wk ago here at [facility]. Denies any urinary issues. Denies any fever, however she has had severe chills recently. She also reports vomiting and nausea, denies diarrhea. Pt further reports that the pain does radiate to her R lower back and R flank. History of Present Illness HPI narrative: Patient presents to the emergency department with abdominal pain, nausea and vomiting which started just prior to arrival. The patient comes in with mostly right-sided pain. She states that she had similar symptoms around 2 months ago. Denies any fever, chills, cough, congestion, dysuria or hematuria or frequency. The patient has had an abdominal hysterectomy and appendectomy in the past. Colonoscopy approximately 1 week ago. Related Data Home Medications Medication Instructions Recorded Confirmed amlodipine 10 mg-benazepril 20 mg 1 cap PO DAILY High blood pressure 08/16/22 10/02/22 capsule (Lotrel) hydrochlorothiazide 25 mg tablet 25 mg PO DAILY High blood pressure 08/16/22 10/02/22 Previous Rx's Medication Instructions Recorded dicyclomine 20 mg tablet 20 mg PO TID PRN abdominal pain 09/02/22 #90 tabs Allergies Allergy/AdvReac Type Severity Reaction Status Date / Time No Known Allergies Allergy Verified 09/02/22 08:46 [facility] Disclaimer: The information contained in this section may have been updated after the patient was seen, as this information can be updated by other users. Medical History Hypertension Surgical History H/O total hysterectomy History of knee replacement Hx of appendectomy Family History Other Family history of heart disease Family history of hypertension Social History Smoking Status: Never smoker alcohol intake: never substance use type: denies use current occupational status: retired Travel in the last 8 weeks: None household members: spouse housing: house lives independently: Yes marital status: education level: high school caffeine: Yes special sasha needs: No agree to transfusion: No do you feel safe at home: Yes victim of physical abuse: No victim of emotional abuse: No victim of sexual abuse: No would you like helpful sources: No ROS Obtained: Yes All systems reviewed & no additional complaints except as documented Gastrointestinal Gastrointestingal: Reports abdominal pain, nausea and vomiting Physical Exam General General appearance: alert and other (Actively vomiting) Head Head exam: atraumatic and normocephalic Eye Eye exam: Present normal appearance, PERRL and EOMI Respiratory Respiratory exam: Present normal lung sounds bilaterally Cardiov
--- NOTE | 2022-10-20 00:35 | PC.NURSE ---
Dr. Brown s/w Dr. Kelley, agrees to consult & wants pt admitted to hospitalist.
--- NOTE | 2022-10-20 00:38 | PC.NURSE ---
Dr. Brown s/w hospitalist for admission, agrees. Notified laundry housekeeper for bed assignment.
--- NOTE | 2022-10-20 00:43 | PC.NURSE ---
Dr. Brown at bedside s/w pt & spouse regarding need for admission. Pt has been swabbed.
[2022-10-20 00:45] LABS: Coronavirus 19, PCR Not Detected (NotDetected); Influenza A, PCR Not Detected (NotDetected); Influenza B, PCR Not Detected (NotDetected)
[2022-10-20 00:48] VITALS: BP 118/80; PULSE 89; RESP 18; TEMP 36.8; O2SAT 98
--- NOTE | 2022-10-20 01:04 | PC.NURSE ---
Pt assigned to room 202
--- NOTE | 2022-10-20 01:33 | EXP.HP ---
History of Present Illness *Admission Date: 10/20/22 *Reason for visit:: abdominal pain *History of present illness: This is a very pleasant 72-year-old female with past medical history of hypertension who presents emergency department today with complaints of abdominal pain. She reports sudden onset of abdominal pain approximately 5 PM last night. She reports pain is generalized but is more severe in the right lower quadrant. She reports prior history of similar pain about a month ago but with negative work-up. Today she states that her pain is associated with vomiting but does not have any intermittent nausea between. She describes the pain as intermittently sharp in nature with generalized dullness throughout. She denies any fever. She does endorse recent normal bowel movements over the course of the last [address] scan of her abdomen significant for high-grade bowel obstruction with kinking and transition point most notable in the right lower quadrant with possible concern for volvulus. Mesenteric edema also noted. Lactic acid is negative. Patient has pain relief with IV pain medication. On exam of prior to admission, she is ambulatory to the restroom and no significant distress. Surgery was consulted and recommends n.p.o. with maintenance IV fluids, bowel rest. She is admitted to hospital service for further evaluation and management. [facility] Disclaimer: The information contained in this section may have been updated after the patient was seen, as this information can be updated by other users. Medical History Hypertension Surgical History H/O total hysterectomy History of knee replacement Hx of appendectomy Family History Other Family history of heart disease Family history of hypertension Social History (Updated 10/20/22 @ 03:08 by Bianka Kline RN) Smoking Status: Never smoker alcohol intake: never substance use type: denies use current occupational status: retired Travel in the last 8 weeks: None household members: spouse housing: house lives independently: Yes marital status: education level: high school caffeine: Yes special sasha needs: No agree to transfusion: No do you feel safe at home: Yes victim of physical abuse: No victim of emotional abuse: No victim of sexual abuse: No would you like helpful sources: No Review of Systems Review of Systems Review of systems:: pertinent systems reviewed and negative unless documented below *Gastrointestinal Gastrointestinal: Reports as per [facility] Meds Home Medications and Allergies Home Medications Medication Instructions Recorded Confirmed Type amlodipine 10 mg-benazepril 20 mg 1 cap PO DAILY High blood pressure 08/16/22 10/20/22 History capsule (Lotrel) hydrochlorothiazide 25 mg tablet 25 mg PO DAILY High blood pressure 08/16/22 10/20/22 History dicyclomine 20 mg tablet 20 mg PO TID PRN abdominal pain 09/02/22 10/20/22 Rx #90 tabs calcium-magnesium 750 mg-465 mg 1 tab PO DAILY supplement 10/20/22 10/20/22 History tablet cetirizine 10 mg capsule (Zyrtec) 10 mg PO DAILY Allergy symptoms 10/20/22 10/20/22 History fluticasone propionate 50 1 spray intranasal NEEDED PRN 10/20/22 10/20/22 History mcg/actuation nasal Allergy Symptoms spray,suspension hyalur ac-chond sul-colg II-AA 40 1 cap PO POSTTR arthritis 10/20/22 10/20/22 History mg-80 mg-400 mg capsule (Hyaluronic Acid(with chondroitin-collagenII)) multivitamin 1 cap PO DAILY Supplement 10/20/22 10/20/22 History New Prescriptions to Start Prescriptions: Allergies Allergy/AdvReac Type Severity Reaction Status Date / Time No Known Allergies Allergy Verified 09/02/22 08:46 Exam Data for Last 24 hours Vital signs and Labs for Last 24 [place]
[2022-10-20 02:14] LABS: Reflex Lactic Add Lactic Reflex
[2022-10-20 02:22] VITALS: BP 141/75; PULSE 50; RESP 17; TEMP 36.8; O2SAT 99; BMI 20.2
--- NOTE | 2022-10-20 02:22 | PC.NURSE ---
PT ARRIVED TO FLOOR AT THIS TIME
[2022-10-20 03:39] LABS: Lactic Acid Follow Up (RFLX 1) 2.1 mmol/L (0.7-2.1)
[2022-10-20 04:00] VITALS: BP 124/58; PULSE 88; RESP 16; TEMP 37; O2SAT 100; BMI 20.5
[2022-10-20 05:25] LABS: Reflex Lactic (2 hrs) Add Lactic Reflex
--- NOTE | 2022-10-20 05:43 | PC.NURSE ---
A&Ox4. Room air. Npo. Receiving IV fluids @200ml/hr. Denies any stomach pain at this time. Patient has received prn pain/nausea medicine once coming up on the floor. VSS. Surgery consult
[2022-10-20 06:36] LABS: Alanine Aminotransferase 21 U/L (12-78); Albumin Level 4.6 g/dl (3.5-5.0); Albumin/Globulin Ratio 1.5 (1.1-1.8); Alkaline Phosphatase 79 U/L (38-126); Anion Gap 12.3 mEq/L (5-15); Aspartate Amino Transferase 37 U/L (14-36); Bilirubin,Total 0.5 mg/dl (0.2-1.3); Blood Urea Nitrogen 8 mg/dl (7-17); Calcium 8.7 mg/dl (8.4-10.2); Carbon Dioxide 25 mmol/L (22.0-30.0); Chloride 100 mmol/L (98-107); Creatinine Clearance Estimated 40 mL/min (50-200); Estimated Glomerular Filt Rate 121 ml/min (>60); GFR (African American) 146 ML/MIN (>60); Glucose 93 mg/dl (74-100); HDL Cholesterol 85 mg/dl (40-60); Potassium 3.3 mmoL/L (3.5-5.1); Sodium 134 mmol/L (136-145); Total Protein,Serum 7.6 g/dl (6.3-8.2); Triglycerides 79 mg/dl (30-150); VLDL Cholesterol 16 mg/dL (0-40)
[2022-10-20 06:44] LABS: Cholesterol 343 mg/dl (140-200)
[2022-10-20 06:47] LABS: Direct LDL Cholesterol 185.51 mg/dL (100-129)
[2022-10-20 08:00] VITALS: BP 119/62; PULSE 75; RESP 18; TEMP 37; O2SAT 98
[2022-10-20 08:00] LABS: Basophils # 0.1 K/mm3 (0-0.2); Basophils % 0.7 % (0.1-2.0); Eosinophils % 0.3 % (0.1-12.0); Hematocrit 37.6 % (37.0-47.0); Hemoglobin 12.7 g/dL (12.2-16.2); Lymphocytes # 1.5 K/mm3 (0.7-4.5); Lymphocytes % 16.9 % (10-50); Mean Corpuscular HGB Conc 33.9 g/dL (31.8-35.4); Mean Corpuscular Hemoglobin 31.1 pg (27.0-31.2); Mean Corpuscular Volume 91.8 fl (81-99); Mean Platelet Volume 7.5 fl (7.4-10.4); Monocytes # 0.5 K/mm3 (0.1-1.0); Monocytes % 5.6 % (1.7-9.3); Neutrophils # 6.7 K/mm3 (1.8-7.8); Neutrophils % 76.6 % (37.0-80.0); Platelet Count 297 K/mm3 (142-424); White Blood Count 8.7 K/mm3 (4.8-10.8)
[2022-10-20 08:08] LABS: Lactic Acid Follow up (RFLX 2) 0.7 mmol/L (0.7-2.1)
--- NOTE | 2022-10-20 09:25 | EXP.SURG.CON ---
History of Present Illness *Admission Date: 10/20/22 *History of present illness: Patient is a pleasant 72-year-old female from [place] who presented to the emergency department with complaints of abdominal pain. She had onset approximately 5 PM on 10/19/2022 which was more generalized but more severe in the right lower quadrant. It has been intermittently sharp in nature with some diffuse dullness. She has had recent normal bowel movements. When she presented to the emergency department she underwent CT scan which reportedly revealed findings of dilated fecalized small bowel loops in the right lower quadrant with some mesenteric edema/infiltration. There was noted whirling pattern of the vessels in the mesentery and beaklike narrowing of small bowel in the right lower quadrant and possible second transition with small bowel narrowing . Patient was admitted for inpatient management and surgical consultation. Patient has had prior history of total hysterectomy and appendectomy. She has had some problems with intermittent acute exacerbations of pain for about 1 year. She had a gallbladder ultrasound done at outside facility at that time. Of note, the patient had presented to the emergency department on 08/16/2022 with symptoms of right-sided abdominal pain radiating into her back with associated emesis. She thought this may be a gallbladder attack. At that time she underwent CT scan which revealed thickened decompressed small bowel loops in the pelvis with associated mesenteric edema and fluid. She did have a gallbladder ultrasound done at that time which was normal. She had followed up with Dr. Wood in the office on 09/02/2022 and did have some minimal residual pain. She was started on ciprofloxacin and Bentyl. She was scheduled for colonoscopy with gastroenterology and underwent colonoscopy with Dr. Chinchilla on 10/02/2022 which was relatively unremarkable other than diverticulosis. Given her history of chronic intermittent pain she was given high-fiber diet and prescription for dicyclomine. [facility] Disclaimer: The information contained in this section may have been updated after the patient was seen, as this information can be updated by other users. Medical History Hypertension Surgical History H/O total hysterectomy History of knee replacement Hx of appendectomy Family History Other Family history of heart disease Family history of hypertension Social History (Updated 10/20/22 @ 03:08 by Bianka Kline RN) Smoking Status: Never smoker alcohol intake: never substance use type: denies use current occupational status: retired Travel in the last 8 weeks: None household members: spouse housing: house lives independently: Yes marital status: education level: high school caffeine: Yes special sasha needs: No agree to transfusion: No do you feel safe at home: Yes victim of physical abuse: No victim of emotional abuse: No victim of sexual abuse: No would you like helpful sources: No Meds Home Medications and Allergies Home Medications Medication Instructions Recorded Confirmed Type amlodipine 10 mg-benazepril 20 mg 1 cap PO DAILY High blood pressure 08/16/22 10/20/22 History capsule (Lotrel) hydrochlorothiazide 25 mg tablet 25 mg PO DAILY High blood pressure 08/16/22 10/20/22 History calcium carb 333 mg-vit D3 133 1 tab PO DAILY Supplement 10/20/22 10/20/22 History unit-mag ox 133 mg-zinc oxide 5 mg tab cetirizine 10 mg capsule (Zyrtec) 10 mg PO DAILY Allergy symptoms 10/20/22 10/20/22 History dicyclomine 20 mg tablet 20 mg PO TIDP PRN abdominal pain 10/20/22 10/20/22 History fluticasone propionate 50 1 spray intranasal NEEDED PRN 10/20/22 10/20/22 History mcg/actuation nasal Allergy Symptoms
[2022-10-20 16:00] VITALS: BP 196/78; PULSE 73; RESP 18; TEMP 37; O2SAT 99
[2022-10-20 19:41] VITALS: BP 130/70; PULSE 66; RESP 18; TEMP 36.8; O2SAT 99
--- NOTE | 2022-10-20 23:18 | PC.NURSE ---
Courtesy Round Patient awake up walking around in room.Patient refused water pitcher to be refilled due to being NPO at midnight .Patient voiced no needs at this time. Call light within reach.
[2022-10-21 04:00] VITALS: BP 119/64; PULSE 70; RESP 16; TEMP 36.7; O2SAT 96; BMI 20.7
--- NOTE | 2022-10-21 06:19 | P.PN_ITS ---
Subjective Narrative: Patient resting. Exam Data for Last 24 hours Vital signs and Labs for Last 24 Hours: Temp Pulse Resp BP Pulse Ox 98.1 F 70 16 119/64 96 10/21/22 04:00 10/21/22 04:00 10/21/22 04:00 10/21/22 04:00 10/21/22 04:00 Laboratory Results - last 24 hr 10/20/22 06:00: Sodium 134 L, Potassium 3.3 L, Chloride 100, Carbon Dioxide 25, Anion Gap 12.3, BUN 8 D, Creatinine 0.50 L, Estimated Creat Clear 40, Estimated GFR 121, Est GFR ( Amer) 146 D, Glucose 93 D, Calcium 8.7, Magnesium 2.0, Total Bilirubin 0.5, AST 37 H, ALT 21, Alkaline Phosphatase 79, Total Protein 7.6, Albumin 4.6, Globulin 3.0, Albumin/Globulin Ratio 1.5, Triglycerides 79, Cholesterol 343 H, LDL Cholesterol Direct 185.51 H, VLDL Cholesterol 16, HDL Cholesterol 85 H, Cholesterol/HDL Ratio 4.0 H 10/20/22 07:55: WBC 8.7, RBC 4.10 L, Hgb 12.7, Hct 37.6, MCV 91.8, MCH 31.1, MCHC 33.9, RDW 13.0, Plt Count 297, MPV 7.5, Neut % (Auto) 76.6, Lymph % (Auto) 16.9, Saline % (Auto) 5.6, Eos % (Auto) 0.3, Baso % (Auto) 0.7, Neut # (Auto) 6.7, Lymph # (Auto) 1.5, Saline # (Auto) 0.5, Eos # (Auto) 0.0, Baso # (Auto) 0.1 10/20/22 07:55: Lactate 0.7 I & O for Last 24 hours: Intake & Output 10/18/22 10/19/22 10/20/22 10/21/22 11:59 11:59 11:59 11:59 Intake Total 1602 / 1602 360 / 360 Output Total 600 / 600 0 / 0 Balance 1002 / 1002 360 / 360 Weight 111 lb 5 oz 112 lb 7 oz Progress Note: A&P Assessment and plan (1) Small bowel obstruction: Status: Acute Assessment and plan: Small bowel follow through today.
[2022-10-21 07:26] LABS: Basophils # 0.1 K/mm3 (0-0.2); Basophils % 1.2 % (0.1-2.0); Eosinophils # 0.2 K/mm3 (0.0-0.4); Eosinophils % 3.3 % (0.1-12.0); Hematocrit 38.9 % (37.0-47.0); Hemoglobin 13.1 g/dL (12.2-16.2); Lymphocytes % 38.5 % (10-50); Mean Corpuscular HGB Conc 33.6 g/dL (31.8-35.4); Mean Corpuscular Hemoglobin 31.4 pg (27.0-31.2); Mean Corpuscular Volume 93.3 fl (81-99); Monocytes # 0.3 K/mm3 (0.1-1.0); Monocytes % 6.4 % (1.7-9.3); Neutrophils # 2.6 K/mm3 (1.8-7.8); Neutrophils % 50.7 % (37.0-80.0); Platelet Count 271 K/mm3 (142-424); Red Blood Count 4.18 M/mm3 (4.20-5.40); White Blood Count 5.2 K/mm3 (4.8-10.8)
[2022-10-21 07:38] LABS: Alanine Aminotransferase 17 U/L (12-78); Albumin Level 3.7 g/dl (3.5-5.0); Albumin/Globulin Ratio 1.5 (1.1-1.8); Alkaline Phosphatase 67 U/L (38-126); Aspartate Amino Transferase 29 U/L (14-36); Bilirubin,Total 0.6 mg/dl (0.2-1.3); Blood Urea Nitrogen 6 mg/dl (7-17); Calcium 8.4 mg/dl (8.4-10.2); Carbon Dioxide 27 mmol/L (22.0-30.0); Chloride 104 mmol/L (98-107); Creatinine Clearance Estimated 40 mL/min (50-200); Estimated Glomerular Filt Rate 121 ml/min (>60); GFR (African American) 146 ML/MIN (>60); Globulin 2.5 g/dL (1.3-3.2); Glucose 77 mg/dl (74-100); Phosphorous 2.8 mg/dl (2.5-4.5); Sodium 135 mmol/L (136-145); Total Protein,Serum 6.2 g/dl (6.3-8.2)
[2022-10-21 08:00] VITALS: BP 132/72; PULSE 67; RESP 18; TEMP 37.1; O2SAT 99
--- NOTE | 2022-10-21 08:47 | XR_ITS ---
FINAL REPORT CLINICAL HISTORY: ABD PAIN talked to Dr Pierre and he ok'd not to do SBFT due to patient having CT with oral contrast from this weekend FINDINGS: A single supine view the abdomen was obtained. The bowel gas pattern is nonspecific but nonobstructive. Contrast is seen in the colon. There are no pathologic calcifications. Osseous structures are within normal limits. IMPRESSION: Nonspecific but nonobstructive bowel gas pattern. Reviewed, Interpreted and Dictated by Zeynep Stone MD Transcribed by Alex Francis Authenticated and [facility]
--- NOTE | 2022-10-21 14:12 | EXP.ACUTE.PN ---
Subjective *Date: 10/21/22 *Time: 14:12 Interval history: Anastasiya is feeling somewhat better today, passing gas. Wanting to eat, has tolerated clear liquids this morning. Denies any nausea, vomiting, chest pain, shortness of breath. Stable on room air. Afebrile Medical Exam Vital signs and Labs for Last 24 Hours: Vital Signs Temp Pulse Resp BP Pulse Ox 10/21/22 08:00 98.8 F 67 18 132/72 99 10/21/22 04:00 98.1 F 70 16 119/64 96 10/20/22 19:41 98.2 F 66 18 130/70 99 10/20/22 16:00 98.6 F 73 18 196/78 H 99 Intake and Output 10/20/22 10/21/22 10/21/22 23:59 07:59 15:59 Intake Total 360 / 1962 480 / 480 Output Total 0 / 600 0 / 0 0 / 0 Balance 360 / 1362 0 / 480 480 / 480 Intake: Intake, Oral Amount 360 / 360 480 / 480 Output: Output, Urine Amount 0 / 600 0 / 0 0 / 0 Other: Number of Unmeasured Voids 1 1 1 Number of Bowel Movements 1 Weight 51.001 kg Patient Weight 10/21/22 23:59 Weight 51.001 kg Laboratory Results - last 24 hr 10/21/22 06:42: WBC 5.2 D, RBC 4.18 L, Hgb 13.1, Hct 38.9, MCV 93.3, MCH 31.4 H, MCHC 33.6, RDW 13.0, Plt Count 271, MPV 7.0 L, Neut % (Auto) 50.7, Lymph % (Auto) 38.5, [place] % (Auto) 6.4, Eos % (Auto) 3.3, Baso % (Auto) 1.2, Neut # (Auto) 2.6, Lymph # (Auto) 2.0, [place] # (Auto) 0.3, Eos # (Auto) 0.2, Baso # (Auto) 0.1 10/21/22 06:42: Sodium 135 L, Potassium 3.0 L, Chloride 104, Carbon Dioxide 27, Anion Gap 7.0, BUN 6 L, Creatinine 0.50 L, Estimated Creat Clear 40, Estimated GFR 121, Est GFR ( Amer) 146, Glucose 77, Calcium 8.4, Phosphorus 2.8, Magnesium 2.0, Total Bilirubin 0.6, AST 29, ALT 17, Alkaline Phosphatase 67, Total Protein 6.2 L, Albumin 3.7 D, Globulin 2.5, Albumin/Globulin Ratio 1.5 I & O for Labs for Last 24 Hours: Intake & Output 10/18/22 10/19/22 10/20/22 10/21/22 23:59 23:59 23:59 23:59 Intake Total 1962 / 196 480 / 480 Output Total 600 / 600 0 / 0 Balance 1362 / 1362 480 / 480 Weight 63.503 kg 50.491 kg 51.001 kg Constitutional: Present no acute distress and average body habitus Head: Present atraumatic and normocephalic ENT: Present normal exam Neck: Present normal inspection Respiratory: Present CTA bilaterally and normal respiratory effort; Absent accessory muscle use, rhonchi, wheezes or crackles Cardiac: Present Reg Rate and Rhythm GI: Present soft, tenderness (non-focal, improved) and normal bowel sounds; Absent distention Extremities: Present normal inspection and full ROM Skin: Present intact; Absent erythema Neuro: Present Cranial Nerve 2-12 Intact, Grossly Intact, alert, awake, oriented x 3 and moves all extremities Assessment and Plan *Assessment and plan (1) Small bowel obstruction: Status: Acute Category: Medical Code(s): K56.609 - Unspecified intestinal obstruction, unspecified as to partial versus complete obstruction (2) Primary hypertension: Status: Acute Category: Medical Code(s): I10 - Essential (primary) hypertension Plan 72-year-old female who presented with concern for small bowel obstruction. High-grade obstruction on CT. Surgery consulted, appreciate their recommendations. Problems addressed as follows: Small bowel obstruction - Surgical consult, appreciate recommendations. Discussed case with surgery, okay to advance diet. KUB obtained today, personally reviewed. Given that there is contrast in the colon, surgery recommends no invasive procedure at this time. Gradually advance diet. If tolerates, can discharge in the coming days. -Phenergan every 6 hours as needed -No pain meds since yesterday, pain improved HTN - We will hold oral antihypertensives at this time. Will intervene with IV medications if needed -Remains normotensive Lovenox 40 mg subcu DVT prophylaxis Protonix Full code
--- NOTE | 2022-10-21 15:52 | PC.NURSE ---
Pt up in chair. Advanced to full liquid diet and tolerated well. Lung sounds clear. Alert and oriented. Able to make needs known. IV potassium given and tolerated well for hypokalemia. Ambulates in room without difficulty.
[2022-10-21 16:00] VITALS: BP 140/78; PULSE 70; RESP 17; TEMP 36.7; O2SAT 99
[2022-10-21 20:00] VITALS: BP 127/61; PULSE 75; RESP 16; TEMP 36.7; O2SAT 100; O2SAT 96
--- NOTE | 2022-10-22 03:25 | PC.NURSE ---
No changes noted through the night. Pt. did state she had a bowl movement last night.
[2022-10-22 04:00] VITALS: BP 127/64; PULSE 70; RESP 16; TEMP 36.8; O2SAT 97; BMI 20.4
[2022-10-22 07:13] LABS: Basophils # 0.1 K/mm3 (0-0.2); Basophils % 0.9 % (0.1-2.0); Eosinophils # 0.1 K/mm3 (0.0-0.4); Eosinophils % 2.8 % (0.1-12.0); Hemoglobin 12.7 g/dL (12.2-16.2); Lymphocytes # 1.7 K/mm3 (0.7-4.5); Lymphocytes % 35.6 % (10-50); Mean Corpuscular HGB Conc 32.5 g/dL (31.8-35.4); Mean Corpuscular Hemoglobin 30.7 pg (27.0-31.2); Mean Corpuscular Volume 94.4 fl (81-99); Mean Platelet Volume 7.1 fl (7.4-10.4); Monocytes # 0.3 K/mm3 (0.1-1.0); Neutrophils # 2.6 K/mm3 (1.8-7.8); Neutrophils % 53.6 % (37.0-80.0); Platelet Count 273 K/mm3 (142-424); Red Blood Count 4.13 M/mm3 (4.20-5.40); Red Cell Distribution Width 13.1 % (11.5-17.5); White Blood Count 4.8 K/mm3 (4.8-10.8)
[2022-10-22 07:23] LABS: Alanine Aminotransferase 17 U/L (12-78); Albumin Level 3.8 g/dl (3.5-5.0); Albumin/Globulin Ratio 1.7 (1.1-1.8); Alkaline Phosphatase 63 U/L (38-126); Anion Gap 9.2 mEq/L (5-15); Aspartate Amino Transferase 31 U/L (14-36); Bilirubin,Total 0.6 mg/dl (0.2-1.3); Blood Urea Nitrogen 7 mg/dl (7-17); Calcium 8.8 mg/dl (8.4-10.2); Carbon Dioxide 27 mmol/L (22.0-30.0); Chloride 103 mmol/L (98-107); Creatinine Clearance Estimated 40 mL/min (50-200); Estimated Glomerular Filt Rate 121 ml/min (>60); GFR (African American) 146 ML/MIN (>60); Globulin 2.2 g/dL (1.3-3.2); Glucose 83 mg/dl (74-100); Phosphorous 3.3 mg/dl (2.5-4.5); Potassium 3.2 mmoL/L (3.5-5.1); Sodium 136 mmol/L (136-145)
[2022-10-22 07:24] VITALS: BP 140/75; PULSE 65; RESP 18; TEMP 36.8; O2SAT 100
--- NOTE | 2022-10-22 10:42 | EXP.DC.SUM ---
General Admission date:: 10/20/22 Discharge date: 10/22/22 HPI HPI HPI: Patient is a pleasant 72-year-old female from [place] who presented to the emergency department with complaints of abdominal pain. She had onset approximately 5 PM on 10/19/2022 which was more generalized but more severe in the right lower quadrant. It has been intermittently sharp in nature with some diffuse dullness. She has had recent normal bowel movements. When she presented to the emergency department she underwent CT scan which reportedly revealed findings of dilated fecalized small bowel loops in the right lower quadrant with some mesenteric edema/infiltration. There was noted whirling pattern of the vessels in the mesentery and beaklike narrowing of small bowel in the right lower quadrant and possible second transition with small bowel narrowing . Patient was admitted for inpatient management and surgical consultation. Patient has had prior history of total hysterectomy and appendectomy. She has had some problems with intermittent acute exacerbations of pain for about 1 year. She had a gallbladder ultrasound done at outside facility at that time. Of note, the patient had presented to the emergency department on 08/16/2022 with symptoms of right-sided abdominal pain radiating into her back with associated emesis. She thought this may be a gallbladder attack. At that time she underwent CT scan which revealed thickened decompressed small bowel loops in the pelvis with associated mesenteric edema and fluid. She did have a gallbladder ultrasound done at that time which was normal. She had followed up with Dr. Wood in the office on 09/02/2022 and did have some minimal residual pain. She was started on ciprofloxacin and Bentyl. She was scheduled for colonoscopy with gastroenterology and underwent colonoscopy with Dr. Chinchilla on 10/02/2022 which was relatively unremarkable other than diverticulosis. Given her history of chronic intermittent pain she was given high-fiber diet and prescription for dicyclomine. Hospital Course Hospital Course Hospital Course: 72-year-old female who presented with concern for small bowel obstruction.? High-grade obstruction on CT.? Surgery consulted, appreciate their recommendations.? Problems addressed as follows: Small bowel obstruction - Surgical consult, patient put on bowel rest initially. KUB obtained following day after admission showing contrast distal to suspected obstruction. Given this finding, patient's diet was slowly advanced. Tolerated improvement in intake with advancement to bland diet by day of discharge. No intervention required. Treated nausea with Phenergan as needed. Does not require any further pain meds after admission. Patient will follow-up closely with surgery as an outpatient for upper GI with small bowel follow-through. Stable to discharge home. We will discontinue her Bentyl as this may exacerbate or be a underlying culprit and worsening of her symptoms. HTN -Resume home regimen for blood pressure after discharge. Held during hospitalization given normotensive state. Stable discharge home. Questions answered Exam Data for Last 24 hours Vital signs and Labs for Last 24 Hours: Temp Pulse Resp BP Pulse Ox 98.2 F 65 18 140/75 100 10/22/22 07:24 10/22/22 07:24 10/22/22 07:24 10/22/22 07:24 10/22/22 07:24 Laboratory Results - last 24 hr 10/22/22 06:30: WBC 4.8, RBC 4.13 L, Hgb 12.7, Hct 39.0, MCV 94.4, MCH 30.7, MCHC 32.5, RDW 13.1, Plt Count 273, MPV 7.1 L, Neut % (Auto) 53.6, Lymph % (Auto) 35.6, [place] % (Auto) 7.0, Eos % (Auto) 2.8, Baso % (Auto) 0.9, Neut # (Auto) 2.6, Lymph # (Auto) 1.7, Ness # (Auto) 0.3, Eos # (Auto) 0.1, Baso # (Auto) 0.1 10/22/22 06:30: Sodium 136, Potassium 3.2 L, Chloride 103, Carbon Dioxide 27, Anion Gap 9.2, BUN 7, Creatinine 0.50 L, Estimated Creat Clear 40, Estimated GFR 121, Est GFR ( Amer) 146, Glucose 83, Calcium 8.8, Phosphorus 3.3, Total B
== END 2022-10-22 02:00 | disposition home or self-care (01) ==
LOC: ER 10-20 00:38 → 2ND 10-20 02:38
PROVIDERS: Nurse Practitioner Acute Care; Admitting Provider Student in an Organized Health Care Education/Training Program; Emergency Provider Emergency Medicine; PCP Family Medicine; Visit Provider Student in an Organized Health Care Education/Training Program
DX: K56.600 Partial intestinal obstruction, unspecified as to cause (principal); I10 Essential (primary) hypertension; Z79.899 Other long term (current) drug therapy; Z20.822 Contact with and (suspected) exposure to COVID-19
CPT/HCPCS: G0378; 36415; 74018; 74177; 80053; 80061; 81001; 83605; 83735; 84100; 85025; 99285; C9803; J2405; Q9967; U0003; U0005

== ENCOUNTER → 2022-11-13 08:34 | Outpatient (CLI) | payer MEDICARE, BC, SELFPAY ==
--- NOTE | 2022-11-13 08:34 | FL_ITS ---
FINAL REPORT CLINICAL HISTORY: anemia, lower abd pain, ft 2:33 FINDINGS: SMALL BOWEL FOLLOW THROUGH HISTORY: Right-sided abdominal pain. Anemia. PROCEDURE: The patient ingested barium. Spot and overhead films were obtained. Fluoroscopy time: 2 minutes 33 seconds. 13 radiographs were obtained. FINDINGS: The cat scan tech film is unremarkable. There is rapid transit time to the colon in less than 15 minutes. The mucosal fold pattern is normal. Spot images of the terminal ileum are unremarkable. IMPRESSION: Rapid transit time to the colon. Otherwise, unremarkable exam. Films reviewed , interpreted and dictated by Dr. Avery. Transcribed by Jarrell Wang PA-C. Reviewed, Interpreted and Dictated by Yung Avery III, MD Transcribed by MERLIN Vergara Authenticated and [facility]
== END ==
PROVIDERS: PCP Family Medicine; Visit Provider Surgery
DX: D64.9 Anemia, unspecified (principal)
CPT/HCPCS: 74250

== ENCOUNTER → 2023-05-01 15:50 | Outpatient (CLI) | payer MEDICARE, BC, SELFPAY ==
[2023-05-01 12:04] LABS: Creatinine,Urine Random 12 mg/dL (Not Estab.)
[2023-05-01 12:12] LABS: Microalbumin < 6.000 mg/L (0-16.7)
[2023-05-01 12:15] LABS: Basophils # 0.1 K/mm3 (0-0.2); Basophils % 0.8 % (0.1-2.0); Eosinophils # 0.1 K/mm3 (0.0-0.4); Eosinophils % 1.4 % (0.1-12.0); Hematocrit 44.4 % (37.0-47.0); Hemoglobin 14.5 g/dL (12.2-16.2); Lymphocytes % 29.2 % (10-50); Mean Corpuscular HGB Conc 32.6 g/dL (31.8-35.4); Mean Corpuscular Hemoglobin 30.9 pg (27.0-31.2); Mean Corpuscular Volume 94.5 fl (81-99); Monocytes # 0.3 K/mm3 (0.1-1.0); Monocytes % 4.8 % (1.7-9.3); Neutrophils # 4.4 K/mm3 (1.8-7.8); Neutrophils % 63.8 % (37.0-80.0); Platelet Count 321 K/mm3 (142-424); Red Blood Count 4.69 M/mm3 (4.20-5.40); Red Cell Distribution Width 13.2 % (11.5-17.5); White Blood Count 6.9 K/mm3 (4.8-10.8)
[2023-05-01 12:16] LABS: Alanine Aminotransferase 36 U/L (12-78); Albumin Level 4.8 g/dl (3.5-5.0); Albumin/Globulin Ratio 1.5 (1.1-1.8); Alkaline Phosphatase 83 U/L (38-126); Anion Gap 11.7 mEq/L (5-15); Aspartate Amino Transferase 44 U/L (14-36); Bilirubin,Total 0.8 mg/dl (0.2-1.3); Blood Urea Nitrogen 12 mg/dl (7-17); Calcium 10.2 mg/dl (8.4-10.2); Carbon Dioxide 31 mmol/L (22.0-30.0); Chloride 102 mmol/L (98-107); Cholesterol 221 mg/dl (140-200); Estimated Glomerular Filt Rate 98 ml/min (>60); GFR (African American) 119 ML/MIN (>60); Globulin 3.1 g/dL (1.3-3.2); Glucose 94 mg/dl (74-100); Potassium 3.7 mmoL/L (3.5-5.1); Sodium 141 mmol/L (136-145); Total Protein,Serum 7.9 g/dl (6.3-8.2); Triglycerides 121 mg/dl (30-150); VLDL Cholesterol 24 mg/dL (0-40)
[2023-05-01 12:23] LABS: Chol/HDL Ratio 2.1 (1-3.5); HDL Cholesterol 103 mg/dl (40-60)
[2023-05-01 12:27] LABS: Direct LDL Cholesterol 89.41 mg/dL (100-129)
[2023-05-01 12:33] LABS: 25-OH Vitamin D, Total 46.9 ng/mL (30-100)
== END ==
PROVIDERS: PCP Internal Medicine; Visit Provider Internal Medicine
DX: E87.6 Hypokalemia (principal); E55.9 Vitamin D deficiency, unspecified; I10 Essential (primary) hypertension
CPT/HCPCS: 80053; 80061; 82043; 82306; 82570; 85025

== ENCOUNTER 2023-11-18 18:00 | Outpatient (CLI) | payer MEDICARE, BC, SELFPAY ==
[2023-11-18 18:31] LABS: Basophils # 0.1 K/mm3 (0-0.2); Basophils % 1.2 % (0.1-2.0); Eosinophils # 0.1 K/mm3 (0.0-0.4); Eosinophils % 1.4 % (0.1-12.0); Hematocrit 43.7 % (37.0-47.0); Hemoglobin 14.1 g/dL (12.2-16.2); Lymphocytes % 37.4 % (10-50); Mean Corpuscular HGB Conc 32.4 g/dL (31.8-35.4); Mean Corpuscular Hemoglobin 31.6 pg (27.0-31.2); Mean Corpuscular Volume 97.7 fl (81-99); Mean Platelet Volume 8.4 fl (7.4-10.4); Monocytes # 0.3 K/mm3 (0.1-1.0); Monocytes % 5.1 % (1.7-9.3); Neutrophils % 54.8 % (37.0-80.0); Platelet Count 313 K/mm3 (142-424); Red Blood Count 4.47 M/mm3 (4.20-5.40); Red Cell Distribution Width 13.7 % (11.5-17.5); White Blood Count 5.4 K/mm3 (4.8-10.8)
[2023-11-18 19:00] LABS: Alanine Aminotransferase 30 U/L (12-78); Albumin Level 4.8 g/dl (3.5-5.0); Albumin/Globulin Ratio 1.8 (1.1-1.8); Alkaline Phosphatase 86 U/L (38-126); Anion Gap 10.9 mEq/L (5-15); Aspartate Amino Transferase 42 U/L (14-36); Bilirubin,Total 0.7 mg/dl (0.2-1.3); Blood Urea Nitrogen 13 mg/dl (7-17); Calcium 10.5 mg/dl (8.4-10.2); Carbon Dioxide 27 mmol/L (22.0-30.0); Chloride 105 mmol/L (98-107); Estimated Glomerular Filt Rate 82 ml/min (>60); GFR (African American) 99 ML/MIN (>60); Globulin 2.7 g/dL (1.3-3.2); Glucose 87 mg/dl (74-100); HDL Cholesterol 91 mg/dl (40-60); Potassium 3.9 mmoL/L (3.5-5.1); Sodium 139 mmol/L (136-145); Total Protein,Serum 7.5 g/dl (6.3-8.2); Triglycerides 162 mg/dl (30-150); VLDL Cholesterol 32 mg/dL (0-40)
[2023-11-18 19:10] LABS: Direct LDL Cholesterol 213.96 mg/dL (100-129)
[2023-11-18 19:12] LABS: Chol/HDL Ratio 4.9 (1-3.5); Cholesterol 443 mg/dl (140-200)
[2023-11-18 19:13] LABS: 25-OH Vitamin D, Total 43.2 ng/mL (30-100)
[2023-11-18 19:30] LABS: Thyroid Stimulating Hormone 1.43 uIU/mL (0.465-4.68)
== END 2023-11-18 23:59 | disposition home or self-care (01) ==
LOC: LAB.DROPOF 11-19 10:45
PROVIDERS: PCP Internal Medicine; Visit Provider Internal Medicine
DX: R53.83 Other fatigue (principal); E55.9 Vitamin D deficiency, unspecified; E78.5 Hyperlipidemia, unspecified; E05.90 Thyrotoxicosis, unspecified without thyrotoxic crisis or storm
CPT/HCPCS: 80053; 80061; 82306; 84443; 85025

== ENCOUNTER 2024-01-15 14:08 | Outpatient (CLI) | payer MEDICARE, BC, SELFPAY ==
--- NOTE | 2024-01-15 14:19 | XR_ITS ---
FINAL REPORT CLINICAL HISTORY: Left knee pain and stiffness FINDINGS: There is no acute fracture or dislocation. There are severe degenerative changes of the medial compartment. There are mild degenerative changes of the lateral compartment. There is no soft tissue abnormality. IMPRESSION: Degenerative changes as above. Reviewed, Interpreted and Dictated by Shaneka Stephens MD Transcribed by Cynthia Mcallister Authenticated and [facility]
== END 2024-01-15 23:59 | disposition home or self-care (01) ==
LOC: RAD 14:11
PROVIDERS: PCP Internal Medicine; Visit Provider Internal Medicine
DX: M17.12 Unilateral primary osteoarthritis, left knee (principal)
CPT/HCPCS: 73562

== ENCOUNTER 2024-06-04 08:52 | Emergency (ER) | payer MEDICARE, BC, SELFPAY ==
[2024-06-04 09:20] VITALS: BP 182/104; PULSE 79; RESP 20; TEMP 36.6; O2SAT 99; BMI 19.0
--- NOTE | 2024-06-04 09:41 | ED_ITS ---
Discharge Plan Disposition Patient Disposition: Home, Self-Care Condition: Good Prescriptions Prescriptions: New methylprednisolone [Medrol (Zeyad)] 4 mg tablets,dose pack See Rx Instructions .Route .COMPLEX 6 Days Qty: 21 0RF Rx Instructions: taper pack; amoxicillin-pot clavulanate 875-125 mg Tablet 1 tab PO Q12H Qty: 20 0RF No Action amlodipine 10 mg tablet 10 mg PO DAILY Patient Comments: TAKE 1 TABLET BY MOUTH ONCE DAILY hydrochlorothiazide 25 mg tablet 25 mg PO DAILY Patient Comments: TAKE 1 TABLET BY MOUTH ONCE DAILY Referrals Follow up/Referrals: Julio Giraldo MD [Primary Care Provider] - See instructions Activity Restrictions/Add. Instructions Additional Instructions/Restrictions: Take medicaiton as prescribed Use over the counter Debrox Follow up with your Family Doctor Return if needed Straight to ER if any life threatening symptoms Clinical Impressions Clinical Impression: Sinusitis Instructions Patient Instructions: DI for Sinusitis, Sinusitis Print Language Print Language: Amharic Discharge ED Provider: Kendal Lassiter [facility] [place] General Stated complaint: Pain in ears, congestion, sinus pressure Mode of Arrival: Ambulatory Source of Information: Patient Limitations: No Limitations Time Seen by Provider: 06/04/24 09:41 Description of Symptoms (Recalled from Triage Doc. by RN): PATIENT C/O EAR PRESSURE WITH DECREASED HEARING AND NASAL CONGESTION HEENT Symptoms (Recalled from RN notes): Yes Resp Symptoms (Recalled from RN notes): No Skin Symptoms (Recalled from RN notes): No MS Symptoms (Recalled from RN notes): No Functional Status (Recalled from RN notes): WNL History of Present Illness Provider Complaint: Patient states that she has been having sinus pain and pr essure for several weeks that has got worse and feels like her ears are stopped up States that she is having pressure like feeling in both ears and cannot hear anything States she tried OTC Debrox but didnt help so today when she wasnt any better she came in to get checked Related Data Home Medications ?Medication ?Instructions ?Recorded ?Confirmed amlodipine 10 mg tablet 10 mg PO DAILY 06/04/24 06/04/24 hydrochlorothiazide 25 mg tablet 25 mg PO DAILY 06/04/24 06/04/24 Previous Rx's ?Medication ?Instructions ?Recorded amoxicillin 875 mg-potassium 1 tab PO Q12H #20 tabs 06/04/24 clavulanate 125 mg tablet methylprednisolone 4 mg tablets in See Rx Instructions .Route 06/04/24 a dose pack (Medrol (Zeyad)) .COMPLEX 6 days #21 tabs Allergies Allergy/AdvReac Type Severity Reaction Status Date / Time No Known Allergies Allergy Verified 02/09/24 10:54 Worker's Comp Is this a Worker's Comp case?: No [facility] Disclaimer: The information contained in this section may have been updated after the patient was seen, as this information can be updated by other users. Medical History Hypercholesterolemia Meera has cut atorvastatin in half. She states she is gone from 40 to 20 mg. She does state that she had problems with the atorvastatin was not clear why. However her last lipid panel revealed a total cholesterol 343 with an elevated LDL. Triglycerides and HDL were actually good. I think she needs to be on low-level atorvastatin and we will provide that for her once we get the lipid panel back that we paola today. Hypertension We will place this patient on lisinopril at 10 mg/day. She is to continue to check her blood pressures record these and bring them back with her when I see her in about 2 to 3 weeks. Will adjust medications at that time. Surgical History History of colonoscopy Hx of appendectomy History of knee replacement H/O total hysterectomy Family History Other Family history of heart disease Family history of hypertension Social History Smoking Status: Never smoker alcohol intake: never substance use type: denies use current occupational status: retired Travel in the last 8 weeks: None household members: spouse housing: house lives independently: Yes marital status: education level: high school caffeine: Yes special sasha needs: No agree to transfusion: No do you feel safe at home: Yes victim of physical abuse: No victim of emotional abuse: No victim of sexual abuse: No would you like helpful sources: No ROS Obtained: Yes All systems reviewed & no additional complaints except as documented and Yes Systems reviewed as appropriate & no additional complaints except as documented Constitutional Constitutional: Reports system reviewed and no additional complaints, except as documented and Reports as per HPI ENT Ears, Nose, Mouth, and Throat: Reports system reviewed and no additional complaints, except as documented, Reports as per HPI, Reports otalgia, Reports sinus pain and Reports sinus pressure Cardiovascular Cardiovascular: Reports system reviewed and no additional complaints, except as documented and Reports as per HPI Respiratory Respiratory: Reports system reviewed and no additional complaints, except as documented and Reports as per HPI Gastrointestinal Gastrointestingal: Reports system reviewed and no additional complaints, except as documented and as per HPI Physical Exam General General appearance: alert and in no apparent distress ENT ENT exam: Present mucous membranes moist Expanded ENT Exam TM/Canal exam: Bilateral TM: cerumen impaction Nose exam: Present sinus tenderness Throat exam: Present other (PND noted) Respiratory Respiratory exam: Present normal lung sounds bilaterally; Absent respiratory distress or wheezes Cardiovascular Cardiovascular exam: Present regular rate, normal rhythm and normal heart sounds Abdominal Exam Abdominal exam: Present soft and normal bowel sounds; Absent distention or tenderness Neurological Exam Neurological exam: Present alert, oriented X3 and normal gait Medical Decision Making Medical Records Screening: Per USPSTF and CDC recommendations, given the prevalence of disease in our region, it is our hospital?s policy to screen for HIV and viral Hepatitis for all patients aged 18 and over and those with ongoing risk factors. Kobi Inquiry Pt receiving controlled substance: No Kobi was queried for this patient: No Vital Signs: 06/04/24 09:20 Temperature 97.9 F Temperature Source Oral Pulse Rate [Left Brachial] 79 Respiratory Rate 20 Blood Pressure [Left Arm] 182/104 H Blood Pressure Mean [Left Arm] 130 Blood Pressure Source [Left Arm] Automatic Cuff Blood Pressure Position [Left Arm] Sitting 02 Sat by Pulse Oximetry 99 Oxygen Delivery Method Room Air Medical Decision Narrative: Ears was flushed and curettes and copious amount of wax removed but some still remains especially in left ear Procedures Ear Wax Removal Both Ears: Cerumenolytic Used: other Results: Re-examined: some cerumen remains TM Examination: TM(s) intact, normal appearance Ear Canal Exam: atraumatic Patient Tolerated Procedure: well and no complications Complications: no problems Technique: ear canal irrigated and ear canal curetted
[2024-06-04 10:15] VITALS: BP 182/104; PULSE 79; RESP 20; TEMP 36.6; O2SAT 99
== END 2024-06-04 10:18 | disposition home or self-care (01) ==
PROVIDERS: Emergency Provider Nurse Practitioner; PCP Internal Medicine
DX: H61.23 Impacted cerumen, bilateral (principal); H92.03 Otalgia, bilateral; R09.81 Nasal congestion; J32.9 Chronic sinusitis, unspecified
CPT/HCPCS: 69209; 99212; G0381

== ENCOUNTER 2024-06-17 14:14 | Outpatient (CLI) | payer MEDICARE, BC, SELFPAY ==
[2024-06-17 14:19] LABS: Basophils # 0.1 K/mm3 (0-0.2); Eosinophils # 0.1 K/mm3 (0.0-0.4); Eosinophils % 2.3 % (0.1-12.0); Hematocrit 41.9 % (37.0-47.0); Hemoglobin 14.3 g/dL (12.2-16.2); Lymphocytes # 1.8 K/mm3 (0.7-4.5); Lymphocytes % 32.7 % (10-50); Mean Corpuscular HGB Conc 34.1 g/dL (31.8-35.4); Mean Corpuscular Hemoglobin 31.7 pg (27.0-31.2); Mean Corpuscular Volume 93.2 fl (81-99); Mean Platelet Volume 7.7 fl (7.4-10.4); Monocytes # 0.4 K/mm3 (0.1-1.0); Monocytes % 7.4 % (1.7-9.3); Neutrophils # 3.2 K/mm3 (1.8-7.8); Neutrophils % 56.6 % (37.0-80.0); Platelet Count 282 K/mm3 (142-424); Red Cell Distribution Width 13.6 % (11.5-17.5); White Blood Count 5.6 K/mm3 (4.8-10.8)
[2024-06-17 14:37] LABS: Albumin Level 4.5 g/dl (3.5-5.0); Chloride 102 mmol/L (98-107); Potassium 4.3 mmoL/L (3.5-5.1); Sodium 137 mmol/L (136-145)
[2024-06-17 14:39] LABS: Blood Urea Nitrogen 11 mg/dl (7-17); Estimated Glomerular Filt Rate 98 ml/min (>60); GFR (African American) 118 ML/MIN (>60)
[2024-06-17 14:40] LABS: Alanine Aminotransferase 21 U/L (12-78); Alkaline Phosphatase 65 U/L (38-126); Anion Gap 10.3 mEq/L (5-15); Aspartate Amino Transferase 37 U/L (14-36); Bilirubin,Total 0.8 mg/dl (0.2-1.3); Calcium 9.8 mg/dl (8.4-10.2); Carbon Dioxide 29 mmol/L (22.0-30.0); Chol/HDL Ratio 2.7 (1-3.5); Cholesterol 224 mg/dl (140-200); Globulin 2.2 g/dL (1.3-3.2); Glucose 69 mg/dl (74-100); HDL Cholesterol 83 mg/dl (40-60); Total Protein,Serum 6.7 g/dl (6.3-8.2); Triglycerides 107 mg/dl (30-150); VLDL Cholesterol 21 mg/dL (0-40)
[2024-06-17 14:51] LABS: Direct LDL Cholesterol 104.08 mg/dL (100-129)
== END 2024-06-17 23:59 | disposition home or self-care (01) ==
LOC: LAB.DROPOF 14:15
PROVIDERS: PCP Internal Medicine; Visit Provider Internal Medicine
DX: I10 Essential (primary) hypertension (principal); E78.2 Mixed hyperlipidemia
CPT/HCPCS: 80053; 80061; 85025

== ENCOUNTER 2024-07-03 09:13 | Emergency (ER) | payer MEDICARE, BC, SELFPAY ==
[2024-07-03 09:25] VITALS: BP 155/81; PULSE 95; RESP 20; TEMP 36.8; O2SAT 99; BMI 18.6
--- NOTE | 2024-07-03 09:56 | EXP.UTC ---
Discharge Plan Disposition Patient Disposition: Home, Self-Care Condition: Good Prescriptions Prescriptions: New guaifenesin 400 mg tablet 400 mg PO Q4H PRN (Reason: cough) Qty: 60 0RF azithromycin 250 mg tablet See Rx Instructions .ROUTE .COMPLEX Qty: 6 0RF Rx Instructions: For 250 mg dose pack: take 500 mg today (day 1), then 250 mg for 4 days (days 2-5); Do not take Cholesterol medication while taking this medication. No Action atorvastatin 40 mg tablet 40 mg PO HS Qty: 90 1RF amlodipine 10 mg tablet 10 mg PO DAILY Patient Comments: TAKE 1 TABLET BY MOUTH ONCE DAILY hydrochlorothiazide 25 mg tablet 25 mg PO DAILY Patient Comments: TAKE 1 TABLET BY MOUTH ONCE DAILY Referrals Follow up/Referrals: Julio Giraldo MD [Primary Care Provider] - See instructions Activity Restrictions/Add. Instructions Additional Instructions/Restrictions: Take medication as prescribed. Increase fluids and rest. If symptoms persist or worsen, return to clinic/PCP. If you become short of air, go to the ER. Clinical Impressions Clinical Impression: Acute lower respiratory infection Instructions Patient Instructions: DI for Viral Upper Respiratory Infection -- Adult, Acute Bronchitis Print Language Print Language: Ukrainian Discharge ED Provider: Ольга Gooden [facility] [place] HPI General Stated complaint: sore throat, cough, runny nose Mode of Arrival: Ambulatory Source of Information: Patient Limitations: No Limitations Time Seen by Provider: 07/03/24 09:55 Description of Symptoms (Recalled from Triage Doc. by RN): PATIENT C/O SORE THROAT, COUGH, SNEEZING, AND EXCESS MUCOUS X 4 DAYS HEENT Symptoms (Recalled from RN notes): Yes Resp Symptoms (Recalled from RN notes): Yes Skin Symptoms (Recalled from RN notes): No MS Symptoms (Recalled from RN notes): No Functional Status (Recalled from RN notes): WNL History of Present Illness Provider Complaint: pt reports that for the last 4 days she has had a sore throat, cough, runny nose, and sneezing. Related Data Home Medications ?Medication ?Instructions ?Recorded ?Confirmed amlodipine 10 mg tablet 10 mg PO DAILY 06/04/24 07/03/24 hydrochlorothiazide 25 mg tablet 25 mg PO DAILY 06/04/24 07/03/24 Previous Rx's ?Medication ?Instructions ?Recorded atorvastatin 40 mg tablet 40 mg PO HS #90 tabs 06/28/24 azithromycin 250 mg tablet See Rx Instructions PO .COMPLEX #6 07/03/24 tabs guaifenesin 400 mg tablet 400 mg PO Q4H PRN cough #60 tabs 07/03/24 Allergies Allergy/AdvReac Type Severity Reaction Status Date / Time No Known Allergies Allergy Verified 06/29/24 10:54 Worker's Comp Is this a Worker's Comp case?: No PFSH PFS Disclaimer: The information contained in this section may have been updated after the patient was seen, as this information can be updated by other users. Medical History Hypercholesterolemia Meera has cut atorvastatin in half. She states she is gone from 40 to 20 mg. She does state that she had problems with the atorvastatin was not clear why. However her last lipid panel revealed a total cholesterol 343 with an elevated LDL. Triglycerides and HDL were actually good. I think she needs to be on low-level atorvastatin and we will provide that for her once we get the lipid panel back that we paola today. Hypertension We will place this patient on lisinopril at 10 mg/day. She is to continue to check her blood pressures record these and bring them back with her when I see her in about 2 to 3 weeks. Will adjust medications at that time. Surgical History History of colonoscopy Hx of appendectomy History of knee replacement H/O total hysterectomy Family History Other Family history of heart disease Family history of hypertension Social History Smoking Status: Never smoker alcohol intake: never substance use type: denies use current occupational status: retired Travel in the last 8 weeks: Inside the [place] household members: spouse housing: house lives independently: Yes marital status: education level: high school caffeine: Yes special sasha needs: No agree to transfusion: No do you feel safe at home: Yes victim of physical abuse: No victim of emotional abuse: No victim of sexual abuse: No would you like helpful sources: No ROS Obtained: Yes All systems reviewed & no additional complaints except as documented Constitutional Constitutional: Reports system reviewed and no additional complaints, except as documented, Reports headache(s) and Reports malaise Eyes Eyes: Reports system reviewed and no additional complaints, except as documented ENT Ears, Nose, Mouth, and Throat: Reports system reviewed and no additional complaints, except as documented, Reports headache(s), Reports nasal congestion, Reports nasal discharge, Reports odynophagia, Reports sinus pressure and Reports sore throat Cardiovascular Cardiovascular: Reports system reviewed and no additional complaints, except as documented Respiratory Respiratory: Reports system reviewed and no additional complaints, except as documented and Reports non-productive cough Gastrointestinal Gastrointestingal: Reports system reviewed and no additional complaints, except as documented and odynophagia Genitourinary Female Genitourinary: Reports system reviewed and no additional complaints, except as documented Musculoskeletal Musculoskeletal: Reports system reviewed and no additional complaints, except as documented Integumentary/Breasts Skin/Breast: Reports system reviewed and no additional complaints, except as documented Neurologic Neurologic: Reports system reviewed and no additional complaints, except as documented and Reports headache(s) Endocrine Endocrine: Reports system reviewed and no additional complaints, except as documented Hematologic/Lymphatic Henatologic/Lymphatic: Reports system reviewed and no additional complaints, except as documented Allergic/Immunologic Allergic/Immunologic: Reports system reviewed and no additional complaints, except as documented Physical Exam General General appearance: alert and in no apparent distress Head Head exam: atraumatic and normocephalic Eye Eye exam: Present normal appearance Expanded ENT Exam External ear exam: Present normal external inspection Nose exam: Present sinus tenderness Nasal speculum exam: Bilateral: other (clear drainage) Mouth exam: Present normal external inspection Teeth exam: Present normal inspection Throat exam: Present tonsillar erythema Neck Neck exam: Present normal inspection; Absent lymphadenopathy Chest Chest inspection: Present normal inspection and symmetric chest wall rise Respiratory Respiratory exam: Present other (course sounds throughout) Cardiovascular Cardiovascular exam: Present regular rate and normal rhythm Abdominal Exam Abdominal exam: Present soft and normal bowel sounds Extremities Exam Extremities exam: Present normal inspection Back Exam Back exam: Present normal inspection Neurological Exam Neurological exam: Present alert and oriented X3 Psychiatric Psychiatric exam: Present normal affect and normal mood Skin Skin exam: Present warm, dry and intact Lymphatic Lymphatic Findings: no adenopathy Medical Decision Making Medical Records Screening: Per USPSTF and CDC recommendations, given the prevalence of disease in our region, it is our hospital?s policy to screen for HIV and viral Hepatitis for all patients aged 18 and over and those with ongoing risk factors. Kobi Inquiry Pt receiving controlled substance: No Kobi was queried for this patient: No Vital Signs: 07/03/24 09:25 Temperature 98.2 F Temperature Source Oral Pulse Rate [Left Brachial] 95 H Respiratory Rate 20 Blood Pressure [Left Arm] 155/81 H Blood Pressure Mean [Left Arm] 105 Blood Pressure Source [Left Arm] Automatic Cuff Blood Pressure Position [Left Arm] Sitting 02 Sat by Pulse Oximetry 99 Oxygen Delivery Method Room Air
[2024-07-03 10:00] LABS: UTC Influenza A Antigen Negative (Negative); UTC Influenza B Antigen Negative (Negative); UTC Strep Screen (Rapid) Negative (Negative)
[2024-07-03 10:11] VITALS: BP 155/81; PULSE 95; RESP 20; TEMP 36.8; O2SAT 99
== END 2024-07-03 10:13 | disposition home or self-care (01) ==
PROVIDERS: Emergency Provider Nurse Practitioner Family; PCP Internal Medicine
DX: J22 Unspecified acute lower respiratory infection (principal); J02.9 Acute pharyngitis, unspecified; R05.9 Cough, unspecified; R06.7 Sneezing; R09.81 Nasal congestion; R51.9 Headache, unspecified
CPT/HCPCS: 87804; 87880; 99212; G0381

== ENCOUNTER 2024-11-16 06:40 | Day surgery (SDC) | payer MEDICARE, BC, SELFPAY ==
[2024-11-11 13:00] VITALS: BMI 18.6
[2024-11-16 07:17] VITALS: BP 144/70; PULSE 74; RESP 18; TEMP 36.4; O2SAT 99
[2024-11-16] MEDS: CYCLOPENTOLATE 2% OPHTH SOLN 2ML BOTTLE OP ×3 (07:20→07:30)
[2024-11-16] MEDS: TETRACAINE 0.5% OPTH SOL 15ML OP ×3 (07:20→07:30)
[2024-11-16] MEDS: PHENYLEPHRINE 2.5% OPHTH SOLN 2ML OP ×3 (07:20→07:30)
[2024-11-16 09:32] VITALS: BP 138/65; PULSE 69; RESP 16; O2SAT 100
[2024-11-16] MEDS: MIDAZOLAM 2MG/2ML VIAL 2 MG (09:32)
[2024-11-16] MEDS: TIMOLOL 0.5% OPTH SOLN 5ML OP (09:34)
[2024-11-16] MEDS: LIDOCAINE 1% PF 2ML AMPULE 2 ML IJ (09:34)
[2024-11-16] MEDS: SODIUM CHLORIDE 0.9% 10ML FLUSH SYRINGE 10 ML IV (09:34)
[2024-11-16] MEDS: TOBRAMYCIN/DEX OPTH SUSP 2.5ML OP (09:34)
[2024-11-16 09:37] VITALS: BP 128/60; PULSE 69; RESP 16; O2SAT 100
[2024-11-16 09:42] VITALS: BP 139/63; PULSE 70; RESP 16; O2SAT 100
[2024-11-16 09:45] VITALS: BP 124/60; PULSE 69; RESP 16; O2SAT 100
[2024-11-16 09:54] VITALS: BP 149/86; PULSE 71; RESP 16; TEMP 36.2; O2SAT 99
--- NOTE | 2024-11-16 12:40 | HMH.PROCNOTE ---
[facility] Procedure Note Date: 11/16/24 Time: 12:41 Procedure Note:: Preoperative Diagnosis: Cataract combined NS Cortical Complex [Left] Eye Postop diagnosis: same Operation: Microscopic phacoemulsification with intraocular lens implant [Left] Eye Specimen: None Blood Loss: None The patient was examined in the office with a complaint of poor vision in the [left] eye. The patient reports that this interferes with ADLs such as reading, watching TV and/or driving or the vision is like looking through a foggy haze and is very troubling. The patient was examined and found to have a visually significant cataract with best corrected vision of [20/400] by refraction and/or glare testing. Treatment options, risks and benefits were explained and the patient elected to have cataract surgery in an attempt to improve their vision. The patient had the eye anesthetized with topical tetracaine, the eye ways prepped and draped in the usual fashion for cataract surgery. A paracentesis and a temporal keratotomy were made. 0.2cc of 1% lidocaine PF was placed into the anterior chamber. And aqueous/viscoelastic exchange was done and a 360 degree capsulorexis was performed. Through hydrodissection and delineation with BSS on a cannula was done. The lens nucleus was phecoemulsified with CDE of [6.44]. Residual cortical material was removed using automated I&A The capsular bag was deepened with viscoelastica and a PCIOL was placed in the capsular bag with good centration and stability. Residual viscoelastic was removed using automated I&A. The keratotomy incision was hydrated with BSS on a cannula. The wound were checked and found to be water tight. IOP was checked digitally and adjusted as needed so as not to be too high. 1 drop of timolol 0.5%, ofloxacin, prednisolone acetate and ketorolac was instilled and eye shield taped over the eye. The patient was taken to recovery in good condition and will be seen postoperatively.
== END 2024-11-16 09:57 | disposition home or self-care (01) ==
PROVIDERS: PCP Internal Medicine; Visit Provider Ophthalmology
DX: H25.812 Combined forms of age-related cataract, left eye (principal)
CPT/HCPCS: 66984; J2250; V2632

== ENCOUNTER 2024-12-07 06:46 | Day surgery (SDC) | payer MEDICARE, BC, SELFPAY ==
[2024-12-06 14:06] VITALS: BMI 19.3
[2024-12-07 06:59] VITALS: BP 129/71; PULSE 62; RESP 18; TEMP 36.1; O2SAT 98
[2024-12-07] MEDS: PHENYLEPHRINE 2.5% OPHTH SOLN 2ML OP ×3 (07:00→07:10)
[2024-12-07] MEDS: TETRACAINE 0.5% OPTH SOL 15ML OP ×3 (07:00→07:10)
[2024-12-07] MEDS: CYCLOPENTOLATE 2% OPHTH SOLN 2ML BOTTLE OP ×3 (07:00→07:10)
[2024-12-07 08:16] VITALS: BP 123/74; PULSE 63; RESP 18; TEMP 36.6; O2SAT 99
[2024-12-07] MEDS: MIDAZOLAM 2MG/2ML VIAL 1 MG IV (08:16)
[2024-12-07] MEDS: SODIUM CHLORIDE 0.9% 10ML FLUSH SYRINGE 10 ML IV (08:16)
[2024-12-07 08:21] VITALS: BP 136/64; PULSE 67; RESP 18; TEMP 36.6; O2SAT 94
[2024-12-07] MEDS: TOBRAMYCIN/DEX OPTH SUSP 2.5ML OP (08:24)
[2024-12-07] MEDS: LIDOCAINE 1% PF 2ML AMPULE 2 ML IJ (08:24)
[2024-12-07] MEDS: TIMOLOL 0.5% OPTH SOLN 5ML OP (08:24)
[2024-12-07 08:26] VITALS: BP 126/64; PULSE 65; RESP 18; TEMP 36.6; O2SAT 93
[2024-12-07 08:31] VITALS: BP 122/65; PULSE 69; RESP 18; TEMP 36.6; O2SAT 95
[2024-12-07 08:40] VITALS: BP 138/74; PULSE 70; RESP 17; TEMP 36.1; O2SAT 98
== END 2024-12-07 08:50 | disposition home or self-care (01) ==
PROVIDERS: PCP Internal Medicine; Visit Provider Ophthalmology
PROC: (CPT 66984; principal; 2024-12-07 08:00)
DX: H26.9 Unspecified cataract (principal)
CPT/HCPCS: 66984; J2250; V2632

== ENCOUNTER 2024-12-29 16:39 | Outpatient (CLI) | payer MEDICARE, BC, SELFPAY ==
[2024-12-29 13:18] LABS: Basophils # 0.1 K/mm3 (0-0.2); Basophils % 0.8 % (0.1-2.0); Eosinophils # 0.1 Kmm3 (0.0-0.4); Eosinophils % 0.9 % (0.1-12.0); Hematocrit 41.1 % (37.0-47.0); Hemoglobin 13.8 g/dL (12.2-16.2); Immature Granulocytes # 0.01 10^3uL; Immature Granulocytes % 0.2 %; Lymphocytes # 1.3 K/mm3 (0.7-4.5); Lymphocytes % 20.2 % (10-50); Mean Corpuscular HGB Conc 33.6 g/dL (31.8-35.4); Mean Corpuscular Hemoglobin 30.6 pg (27.0-31.2); Mean Corpuscular Volume 91.1 fl (81-99); Mean Platelet Volume 9.3 fl (7.4-10.4); Monocytes # 0.2 K/mm3 (0.1-1.0); Neutrophils # 4.8 K/mm3 (1.8-7.8); Neutrophils % 74.9 % (37.0-80.0); Nucleated Red Blood Cells # 0 10^3/uL; Nucleated Red Blood Cells % 0 %; Platelet Count 291 K/mm3 (142-424); Red Blood Count 4.51 M/mm3 (4.20-5.40); Red Cell Distribution Width 13.1 % (11.5-17.5); Red Cell Distribution Width-SD 43.7 fL; White Blood Count 6.4 K/mm3 (4.8-10.8)
[2024-12-29 13:53] LABS: Alanine Aminotransferase 35 U/L (12-78); Albumin Level 4.9 g/dl (3.5-5.0); Albumin/Globulin Ratio 1.8 (1.1-1.8); Alkaline Phosphatase 77 U/L (38-126); Aspartate Amino Transferase 44 U/L (14-36); Bilirubin,Total 0.6 mg/dl (0.2-1.3); Blood Urea Nitrogen 14 mg/dl (7-17); Calcium 10.1 mg/dl (8.4-10.2); Carbon Dioxide 31 mmol/L (22.0-30.0); Chloride 100 mmol/L (98-107); Cholesterol 219 mg/dl (140-200); Creatine Kinase 190 U/L (30-135); Estimated Glomerular Filt Rate 97 ml/min (>60); GFR (African American) 118 ML/MIN (>60); Globulin 2.7 g/dL (1.3-3.2); Glucose 92 mg/dl (74-100); Sodium 140 mmol/L (136-145); Total Protein,Serum 7.6 g/dl (6.3-8.2); Triglycerides 138 mg/dl (30-150); VLDL Cholesterol 28 mg/dL (0-40)
[2024-12-29 13:59] LABS: HDL Cholesterol 109 mg/dl (40-60)
[2024-12-29 14:03] LABS: Direct LDL Cholesterol 75.92 mg/dL (100-129)
[2024-12-29 14:23] LABS: Thyroid Stimulating Hormone 0.82 uIU/mL (0.465-4.68)
== END 2024-12-29 23:59 | disposition home or self-care (01) ==
LOC: LAB.DROPOF 16:40
PROVIDERS: PCP Internal Medicine; Visit Provider Internal Medicine
DX: E78.5 Hyperlipidemia, unspecified (principal); M79.10 Myalgia, unspecified site; I10 Essential (primary) hypertension; E78.2 Mixed hyperlipidemia; G47.62 Sleep related leg cramps
CPT/HCPCS: 80053; 80061; 82550; 83735; 84443; 85025

== ENCOUNTER 2025-05-05 10:15 | Outpatient (CLI) | payer MEDICARE, BC, SELFPAY ==
[2025-05-05 19:02] LABS: Alanine Aminotransferase 29 U/L (12-78); Albumin Level 4.5 g/dl (3.5-5.0); Albumin/Globulin Ratio 2.0 (1.1-1.8); Alkaline Phosphatase 97 U/L (38-126); Anion Gap 16.4 mEq/L (5-15); Aspartate Amino Transferase 36 U/L (14-36); Bilirubin,Total 0.8 mg/dl (0.2-1.3); Blood Urea Nitrogen 12 mg/dl (7-17); Calcium 9.7 mg/dl (8.4-10.2); Carbon Dioxide 28 mmol/L (22.0-30.0); Chloride 98 mmol/L (98-107); Cholesterol 221 mg/dl (140-200); Creatinine,Serum 0.70 mg/dl (0.52-1.04); Estimated Glomerular Filt Rate 82 ml/min (>60); GFR (African American) 99 ML/MIN (>60); Globulin 2.3 g/dL (1.3-3.2); Glucose 68 mg/dl (74-100); HDL Cholesterol 97 mg/dl (40-60); Magnesium 2.1 mg/dl (1.6-2.3); Potassium 4.4 mmoL/L (3.5-5.1); Sodium 138 mmol/L (136-145); Total Protein,Serum 6.8 g/dl (6.3-8.2); Triglycerides 88 mg/dl (30-150)
--- OUTSIDE RECORDS SUMMARY | 2025-05-06 01:53 | XMS_ITS | Clinical Summary ---
Author Organization [facility] Address [facility] [place] [address] Care Team Providers Care Paralegal Instructor Name Role Phone Pcp, No Primary Care Provider Unavailabl e Allergies No known active allergies Social History Tobacco Use Types Packs/Day Years Used Date Smoking Tobacco: Never Smokeless Tobacco: Never Tobacco Cessation:Counseling Given: Not Answered Alcohol Use Standard Drinks/Week Comments Never 0 (1 standard drink = 0.6 oz pur e alcohol) Comments Unknown Sex and Gender Information Value Date Recorded Sex Assigned at Not on file Legal Sex Female 3:52 PM EDT Gender Identity Not on file Sexual Orientation Not on file Last Filed Vital Signs Vital Sign Reading Time Taken Comments Blood Pressure 129/75 03/13/2022 1:09 AM EDT Pulse 80 03/13/2022 1:09 AM EDT Temperature 36.6 C (97.8 F) 03/13/2022 1:09 AM EDT Respiratory Rate 16 03/13/2022 1:09 AM EDT Oxygen Saturation 98% 03/13/2022 1:09 AM EDT Inhaled Oxygen Concentration - - Weight 51.7 kg (114 lb) 03/12/2022 6:02 PM EDT Height 167.6 cm (5' 6 ) 03/12/2022 6:02 PM EDT Body Mass Index 18.4 03/12/2022 6:02 PM EDT Plan of Treatment Health Maintenance Due Date Last Done Comments [facility]-Bone Density Scan 1949 [facility]-Depression Screening 1950 [facility]-Infant/Child/Adol SDOH Screenings 1950 [facility]- SDOH Screenings 10/21/1967 [facility]-Adult SDOH Screenings 10/21/1967 [facility]-DTaP,Tdap,and Td Vaccines (1 - Tdap) 1968 CT Colonography 1994 Colonoscopy 1994 FIT-DNA 1994 FIT 1994 FOBT 1994 Sigmoidoscopy 1994 [facility]-Colorectal Cancer Screening 1994 [facility]-Zoster Vaccines (2 of 3) 01/07/2017 11/12/2016 [facility]-Pneumococcal Vaccine: 50+ Years (2 of 2 - PCV20 or PCV21) 02/13/2020 02/12/2019 [facility]-RSV Vaccine: 60+ Years or (1 - 1-dose 75+ series) 2024 [id number] Vaccine (2 - 2024- season) 2025 10/25/2020 [facility]-Influenza Vaccine (#1) 03/28/202505/04, 04/11/2020, 05/23/2016, Additional history exists HPV Vaccines Aged Out No longer eligi ble based on patient's age to complete this topic [facility]-HIB Vaccines Aged Out No longer e ligible based on patient's age to complete this topic [facility]-Hepatitis A Vaccines Aged Out No longer eligible based on patient's age to complete this topic [facility]-IPV Vaccines Aged Out No longer e ligible based on patient's age to complete this topic [facility]-Rotavirus Vaccines Aged Out No lo nger eligible based on patient's age to complete this topic Insurance MEDICARE [facility] Care Teams Paralegal Instructor Relationship Specialty Start Date End Date Pcp, No [address] [place] [address] PCP - General Family Medicine 03/12/22
--- OUTSIDE RECORDS SUMMARY | 2025-05-06 01:53 | XMS_ITS | Encounter Summary ---
Author Organization Healthcare Address [address] [place] [address] Care Team Providers Care Die Machine Operator Name Role Phone Pcp, No Primary Care Provider Unavailabl e Encounter Details Date Type Department Care Team (Late st Contact Info) Description 03/12/2022 Ophth Exam [facility] [address] [place] [address] Gurinder Talbot MD [address] [place], [place] [id number] Social History Tobacco Use Types Packs/Day Years Used Date Smoking Tobacco: Never Smokeless Tobacco: Never Alcohol Use Standard Drinks/Week Comments Never 0 (1 standard drink = 0.6 oz pur e alcohol) Comments Unknown Sex and Gender Information Value Date Recorded Sex Assigned at Not on file Legal Sex Female 3:52 PM EDT Gender Identity Not on file Sexual Orientation Not on file COVID-19 Exposure Response Date Recorded In the last 10 days, have yo u been in contact with someone who was confirmed or suspected to have Coronavirus/COVID-19? No / Unsure 03/12/2022 6:02 PM EDT documented as of this encounter Functional Status * Calculated C-SSRS Risk Score (Lifetime/Recent) Answer Date of Assessment Author No Risk Indicated 03/12/2022 7:02 PM EDT Cat Clarke RN * Question Answer Date of Assessment Author 1. Wish to be (Past 1 Month) No 022 7:02 PM EDT Cat Clarke RN 2. Non-Specific Active Suici peyman Thoughts (Past 1 Month) No 03/12/2022 7:02 PM EDT Umair Clarke RN 6. Suicidal Behavior (Lifetime) No 7:02 PM EDT Cat Clarke RN documented as of this encounter Plan of Treatment Not on file documented as of this encounter Visit Diagnoses Not on filedocumented in this encounter Care Teams Die Machine Operator Relationship Specialty Start Date End Date Pcp, No [address] [place] [address] PCP - General Family Medicine 03/12/22 documented as of this encounter
== END 2025-05-05 23:59 ==
LOC: LAB.DROPOF 05-06 01:51
PROVIDERS: PCP Internal Medicine; Visit Provider Internal Medicine
DX: G47.62 Sleep related leg cramps (principal); I10 Essential (primary) hypertension; M62.838 Other muscle spasm; E78.5 Hyperlipidemia, unspecified
CPT/HCPCS: 80053; 80061; 83735

== ENCOUNTER 2025-05-18 07:49 | Outpatient (CLI) | payer MEDICARE, BC, SELFPAY ==
--- OUTSIDE RECORDS SUMMARY | 2025-05-18 07:52 | XMS_ITS | Encounter Summary ---
Author Organization Healthcare Address [address] [place] [address] Care Team Providers Care Health Aide Name Role Phone Pcp, No Primary Care Provider Unavailabl e Encounter Details Date Type Department Care Team (Late st Contact Info) Description 03/12/2022 Ophth Exam [facility] [address] [place] [address] Gurinder Talbot MD [address] [place], [place] [id number] Social History Tobacco Use Types Packs/Day Years [...] on filedocumented in this encounter Care Teams Health Aide Relationship Specialty Start Date End Date Pcp, No [address] [place] [address] PCP - General Family Medicine 03/12/22 documented as of this encounter
--- OUTSIDE RECORDS SUMMARY | 2025-05-18 07:52 | XMS_ITS | Clinical Summary ---
Author Organization [facility] Address [facility] [place] [address] Care Team Providers Care Map Clerk Name Role Phone Pcp, No Primary Care [...] or (1 - 1-dose 75+ series) 2024 [id number] Vaccine (2 - 2024- season) 2025 10/25/2020 [...] age to complete this topic Insurance MEDICARE [facility] Care Teams Map Clerk Relationship Specialty Start Date End Date Pcp, No [address] [place] [address] PCP - General Family Medicine 03/12/22
--- OUTSIDE RECORDS SUMMARY | 2025-05-18 07:52 | XMS_ITS | Data Portability ---
Author Organization [facility] & MITALI Brumfield ADMIN Address [address] [place] [address] Care Team Providers Care Welfare Eligibility Worker Name Role Phone CIARA RICHARDS Primary Care Provider [phone] CALLIE HARRIS Referring Provider [phone] Assessment No assessment recorded. Plan of Treatment Reminders Order Date Submit Date Provider Last Modified By Organization Details Last Modified Time Details Appointments None record ed. Lab None record ed. Referral None record ed. Procedures None record ed. Surgeries None record ed. Imaging None record ed. Medication Orders None record ed. Patient TargetsNo targets recorded. Patient InstructionsNo instructions recorded. Reason for Referral None Reported. Medical Equipment None Reported. Medications Name Sig Start Date Stop Date Status Note LastModified by Organization Details LastModified Time losartan 50 mg tablet TAKE ONE (1) TABLET BY MOUTH EVERY DAY DIRECTED active Not Available Not Available Not Available amoxicillin 500 mg capsule TAKE FOUR CAPSULES BY MOUTH ONE FULL HOUR PRIOR TO DENTAL APPOINTMENT active Not Available Not Available Not Available atorvastatin 40 mg tablet TAKE ONE (1) TABLET BY MOUTH EVERY EVENING active Not Available Not Available No t Available metronidazol e 500 mg tablet TAKE 1 TABLET BY MOUTH THREE TIMES DAILY active Not Available Not Available Not Available ciprofloxaci n 500 mg tablet TAKE 1 TABLET BY MOUTH TWICE DAILY active Not Available Not Available No t Available meloxicam 7.5 mg tablet TAKE 1 TABLET BY MOUTH ONCE DAILY active Not Available Not Available No t Available dicyclomine 20 mg tablet TAKE 1 TABLET BY MOUTH THREE TIMES DAILY NEEDED FOR ABDOMINAL PAIN active Not Available Not Available No t Available omeprazole 20 mg capsule,hansel yed release TAKE 1 CAPSULE BY MOUTH ONCE DAILY active Not Available Not Available No t Available hydrochlorot hiazide 25 mg tablet TAKE 1 TABLET BY MOUTH ONCE DAILY active Not Available Not Available No t Available methylpredni solone 4 mg tablets in a dose pack TAKE DIRECTED FOR 6 DAYS active Not Available Not Available N ot Available amlodipine 10 mg-benazepri l 20 mg capsule TAKE 1 CAPSULE BY MOUTH ONCE DAILY active Not Available Not Available No t Available GaviLyte-G 236 gram-22.74 gram-6.74 gram-5.86 gram oral solution DRINK 240 ML EVERY 10 MINUTES FOLLOW MAILED INSTRUCTION S active Not Available Not Available No t Available Vitals Date Recorded Body height Body mass index (BMI) Body weight Provider Name and Address Organization Details Last Updated DateTime 11/20/2022 167.64 cm 17.8 kg/m2 61351.16 [facility] [place] [facility] [place] 11/20/2022 09:52:16 Social History None recorded. Functional Status None recorded. Mental Status None recorded. Family History Nothing Reported. Medical History No medical history recorded. Gynecological HistoryNo gynecological history recorded. Obstetrics History GPAL:G 0 P 0 0 0 0 Past Encounters Encounter ID Performer Location Encounter Start Date Encounter Closed Date Diagnosis/Indication Diagnosis SNOMED-CT Code Diagnosis ICD10 Code Diagnosis IMO Codes Diagnosis Note [id number] Pascual Hdez MD [facility] [address] [address] 11/20/2022 09:00:23 11/20/2022 14:53:24 Health Concerns Section Related Observation LastModified by Organization Detai ls LastModified Time None Recorded Concern Status LastModified by Organization Details LastModified Time None Recorded Advance Directives Directive None Recorded Payers Insurance Date Sequence Insurance Name Policy Number Policy Swann Covered Member ID Swann Member ID Guarantor Name 01/15/2023 2 [place] [id number] Meera Anastasiya [id number] Meera Merced 01/15/2023 1 [place] Meera K Merced [id number] Meera Merced OBGyn Episode No OBEpisode recorded.
--- OUTSIDE RECORDS SUMMARY | 2025-05-18 07:52 | XMS_ITS | Clinical Summary ---
Author Organization [facility] Address [address] [place] [address] Phone Care Team Providers Care Supervisor Television Chassis Repair Name Role Phone Bindu Rose MD [place] Primary Care Provider + Allergies Active Allergy Reactions Criticality Noted Date Comments Hymenoptera Allergenic Extract Swelling 02/26 Medications lovastatin (MEVACOR) 20 mg tablet Take 20 mg by mouth nightly. Active multivitamin capsule Take 1 Cap by mouth daily. Active CINNAMON BARK (CINNAMON ORAL) Take by mouth daily. Active CETIRIZINE HCL (ZYRTEC ORAL) Take 1 Tab by mouth daily. Active Aspirin 81 mg Take 81 mg by mouth daily. Active conjugated estrogens (PREMARIN) Vagl Cream Place vaginally daily. Active Calcium Citrate-Vitamin D3 315-250 mg-unit Oral Tablet Take by mouth. Activ e magnesium oxide (MAG-OX) 400 mg Oral Tablet Take 100 mg by mouth daily. Active oxyCODONE (ROXICODONE) 5 mg Oral Tablet Take 1-2 Tabs by mouth every 4 hours as needed for Pain (take 1-2 tablets every 4-6 hours as needed for pain). 6 Active Active Problems Problem Noted Date Diagnosed Date Primary osteoarthritis of right knee 06/11/2016 Essential hypertension 06/11/2016 Postoperative anemia due to acute blood loss Surgical History Surgery Date Site/Laterality Comments APPENDECTOMY 07/28/1969 - 07/27/1970 HYSTERECTOMY 07/28/1980 - 07/27/1981 KNEE ARTHROSCOPY 02/28/2012 Left LEFT KNEE ARTHROSCOPY DEBRIDEMENT MEDIAL MENISCECTOMY SUBCHONDRAL DRILLING ; Surgeon: Brayan Tellez MD; Location: [facility]; Service: Orthopedics KNEE ARTHROSCOPY 05/06/2012 Knee/Right RIGHT KNEE ARTHROSCOPY DEBRIDEMENT PARTIAL MEDIAL MENISECTOMY, CHONDROPLASTY AND SUBCHONDRAL DRILLING OF MULTIPLE ARTICULAR SURFACES; Surgeon: Brayan Tellez MD; Location: [facility]; Service: Orthopedics TOTAL KNEE ARTHROPLASTY 06/10/2016 Right RIGHT TOTAL KNEE ARTHROPLASTY ; Surgeon: Brayan Tellez MD; Location: [facility]; Service: Orthopedics Medical devices from this surgery are in the Medical Devices section. Medical History Medical History Date Comments Pneumonia Osteoarthritis knee's Headache(784.0) sinus headaches Seasonal allergies Postoperative nausea and vomiting did not have any with surgery done in february 2012 Varicose veins Hyperlipidemia Family History Medical History Relation Name Comments Anesth Problems Neg Hx Social History Tobacco Use Types Packs/Day Years Used Date Smoking Tobacco: Never Smokeless Tobacco: Never Alcohol Use Standard Drinks/Week Comments No 0 (1 standard drink = 0.6 oz pur e alcohol) Comments No Sex and Gender Information Value Date Recorded Sex Assigned at Not on file Legal Sex Female 12:51 AM EDT Gender Identity Not on file Sexual Orientation Not on file Last Filed Vital Signs Vital Sign Reading Time Taken Comments Blood Pressure 101/51 06/12/2016 8:26 AM EST Pulse 80 06/12/2016 8:26 AM EST Temperature 36.4 C (97.5 F) 06/12/2016 8:26 AM EST Respiratory Rate 14 06/12/2016 8:26 AM EST Oxygen Saturation 100% 06/12/2016 8:26 AM EST Inhaled Oxygen Concentration - - Weight 56 kg (123 lb 6 oz) 06/10/2016 2:02 PM ES T Height 167.6 cm (5' 6 ) 06/10/2016 2:02 PM EST Body Mass Index 19.91 06/10/2016 2:02 PM EST Plan of Treatment Health Maintenance Due Date Last Done Comments Wellness Exam Medicare 1953 Hepatitis C Screening 10/21/1967 DTaP/TDaP/Td (1 - Tdap) 1968 Cologuard 1994 FIT 1994 Sigmoidoscopy 1994 Virtual Colonography 1994 Bone Density Screening 2014 Zoster (2 of 3) 01/07/2017 11/12/2016 Pneumococcal Vaccine 50+ (2 of 2 - PCV20 or PCV21) 02/13/2020 02/12/2019 Colon Cancer Screening 12/04/2023 Colonoscopy 12/04/2023 12/03/2018 RSV or 60+ (1 - 1-dose 75+ series) 2024 COVID-19 Vaccine ( - season) 2025 Influenza Vaccine (#1) 2025 , 04/11/2020, 04/27/2019, Additional history exists Hepatitis B Vaccine Aged Out No longe r eligible based on patient's age to complete this topic Meningococcal B Vaccine Aged Out No l onger eligible based on patient's age to complete this topic Medical Devices Implanted Type Area Breeder Service Technician Device Identifier Shelf Expiration Date Model / Serial / Lot Palacos R & G Bone Cement With Gentamycin - [id number] Implanted:Qty: 1 on 06/10/2016 by Brayan Tellez MD at [facility] Right: Knee JESSICA:JESSICA 12/26/2019 1113-140-0 / [id number] Patella All Poly Cemented Persona 29mm 8.0mm Thickness - [id number] Implanted:Qty: 1 on 06/10/2016 by Brayan Tellez MD at [facility] Right: Knee JESSICA:JESSICA 04/26/2024 42-5400-00 0-29 / / [id number] Femur Tm Cr Persona Standard Porous Right Size 6 - [id number] Implanted:Qty: 1 on 06/10/2016 by Brayan Tellez MD at [facility] Right: Knee JESSICA:JESSICA 04/26/2025 42-5028-06 0-02 / / [id number] Component Tibia Cemented Stemmed Persona 5 Degree Rgt Size D - [id number] Implanted:Qty: 1 on 06/10/2016 by Brayan Tellez MD at [facility] Right: Knee JESSICA:JESSICA 05/27/2026 42-5320-06 01-26 [id number] Surface Articular Cr Fixed Bearing Persona Right 11 Mm - [id number] Implanted:Qty: 1 on 06/10/2016 by Brayan Tellez MD at [facility] Right: Knee JESSICA:JESSICA 06/26/2019 42-5220-00 11-05 [id number] Insurance [place]ICARE [place] PART A [place] B MEDICARE SUPPLEMENT MEDICARE [place] MEDIC[place] MED[place]ARE [place] PART [place] B Advance Directives For more information, please contact: [phone] * Full Code (Latest Code Status on File) Date Activated Date Inactivated Comments 06/10/2016 10:29 PM 06/12/2016 4:31 PM Care Teams Supervisor Television Chassis Repair Relationship Specialty Start Date End Date Pratik Ruano MD [address] [place] [phone] PCP - General 04/23/10
--- NOTE | 2025-05-18 08:00 | MM_ITS ---
PROCEDURE INFORMATION: Exam: Bilateral Screening 3D Mammography Exam date and time: 05/18/2025 8:02 AM Age: 74 years old Clinical indication: Screening exam. TECHNIQUE: Imaging protocol: Bilateral Screening tomosynthesis and 2D mammography including computer-aided detection (CAD) when performed. COMPARISON: SCN DIG BREAST TOMOSYN YAYO 08/16/2021 8:02 AM FINDINGS: MAMMOGRAPHY: Breast composition: The breasts are heterogeneously dense, which may obscure small masses. Mass: Questioned 0.7 cm mass upper-outer left breast middle depth. Architectural distortion: None. Calcifications: No suspicious calcifications. Asymmetric density: None. Skin thickening: None. Axillary adenopathy: None. IMPRESSION: Questioned left breast mass.Recommend left breast diagnostic mammogram including spot compression views of the left breast in the CC and MLO projections, a full 90 degree lateral view, and left breast ultrasound for further evaluation. ASSESSMENT: BI-RADS Category 0: Incomplete- Need Additional Imaging Evaluation.
== END 2025-05-18 23:59 | disposition home or self-care (01) ==
LOC: RAD 07:50
PROVIDERS: PCP Internal Medicine; Visit Provider Internal Medicine
DX: Z12.31 Encounter for screening mammogram for malignant neoplasm of breast (principal); R92.333 Mammographic heterogeneous density, bilateral breasts; R92.8 Other abnormal and inconclusive findings on diagnostic imaging of breast
CPT/HCPCS: 77063; 77067

== ENCOUNTER 2025-06-09 07:51 | Outpatient (CLI) | payer MEDICARE, BC, SELFPAY ==
--- OUTSIDE RECORDS SUMMARY | 2025-06-09 07:53 | XMS_ITS | Clinical Summary ---
Author Organization [facility] Address [address] [place] [address] Phone Care Team Providers Care Rod Welder Name Role Phone Bindu Rose MD [place] Primary Care Provider + Allergies Active Allergy [...] DRILLING ; Surgeon: Brayan Tellez MD; Location: [facility]; Service: Orthopedics KNEE ARTHROSCOPY 05/06/2012 Knee/Right RIGHT KNEE ARTHROSCOPY DEBRIDEMENT PARTIAL MEDIAL MENISECTOMY, CHONDROPLASTY AND SUBCHONDRAL DRILLING OF MULTIPLE ARTICULAR SURFACES; Surgeon: Brayan Tellez MD; Location: [facility]; Service: Orthopedics TOTAL KNEE ARTHROPLASTY 06/10/2016 Right RIGHT TOTAL KNEE ARTHROPLASTY ; Surgeon: Brayan Tellez MD; Location: [facility]; Service: Orthopedics Medical devices from this surgery [...] this topic Medical Devices Implanted Type Area Manager Athletics Device Identifier Shelf Expiration Date Model / Serial / Lot Palacos R & G Bone Cement With Gentamycin - [id number] Implanted:Qty: 1 on 06/10/2016 by Brayan Tellez MD at [facility] Right: Knee JESSICA:JESSICA 12/26/2019 1113-140-0 / [id number] Patella All Poly Cemented Persona 29mm 8.0mm Thickness - [id number] Implanted:Qty: 1 on 06/10/2016 by Brayan Tellez MD at [facility] Right: Knee JESSICA:JESSICA 04/26/2024 42-5400-00 0-29 / / [id number] Femur Tm Cr Persona Standard Porous Right Size 6 - [id number] Implanted:Qty: 1 on 06/10/2016 by Brayan Tellez MD at [facility] Right: Knee JESSICA:JESSICA 04/26/2025 42-5028-06 0-02 / / [id number] Component Tibia Cemented Stemmed Persona 5 Degree Rgt Size D - [id number] Implanted:Qty: 1 on 06/10/2016 by Brayan Tellez MD at [facility] Right: Knee JESSICA:JESSICA 05/27/2026 42-5320-06 01-26 [id number] Surface Articular Cr Fixed Bearing Persona Right 11 Mm - [id number] Implanted:Qty: 1 on 06/10/2016 by Brayan Tellez MD at [facility] Right: Knee JESSICA:JESSICA 06/26/2019 42-5220-00 11-05 [id number] Insurance [place]ARE [place] MEDIC[place] SU[place]MENT [place]ARE [place] MED[place]ARE [place] B Advance Directives For more information, please contact: [phone] * Full Code (Latest Code Status on File) Date Activated Date Inactivated Comments 06/10/2016 10:29 PM 06/12/2016 4:31 PM Care Teams Rod Welder Relationship Specialty Start Date End Date Pratik Ruano MD [address] [place] [phone] PCP - General 04/23/10
--- OUTSIDE RECORDS SUMMARY | 2025-06-09 07:53 | XMS_ITS | Encounter Summary ---
Author Organization Healthcare Address [address] [place] [address] Care Team Providers Care Exploration Engineer Name Role Phone Pcp, No Primary Care Provider Unavailabl e Encounter Details Date Type Department Care Team (Late st Contact Info) Description 03/12/2022 Ophth Exam [facility] [address] [place] [address] Gurinder Talbot MD [address] [place], [place] [id number] Social History Tobacco Use Types Packs/Day Years [...] on filedocumented in this encounter Care Teams Exploration Engineer Relationship Specialty Start Date End Date Pcp, No [address] [place] [address] PCP - General Family Medicine 03/12/22 documented as of this encounter
--- OUTSIDE RECORDS SUMMARY | 2025-06-09 07:53 | XMS_ITS | Clinical Summary ---
Author Organization [facility] Address [facility] [place] [address] Care Team Providers Care Complaint Coordinator Name Role Phone Pcp, No Primary Care [...] [facility]-Bone Density Scan 1950 [facility]-Depression Screening 1950 [facility]-/Child/Adol SDOH Screenings 1950 [facility]- SDOH Screenings 10/21/1967 [...] or (1 - 1-dose 75+ series) 2024 [id number] Vaccine (2 - 2024- season) 2025 10/25/2020 [...] age to complete this topic Insurance MEDICARE [facility] Care Teams Complaint Coordinator Relationship Specialty Start Date End Date Pcp, No [address] [place] [address] PCP - General Family Medicine 03/12/22
--- NOTE | 2025-06-09 08:00 | MM_ITS ---
PROCEDURE INFORMATION: Exam: US Left Breast, Complete MG Left Diagnostic Breast Tomosynthesis Exam date and time: 06/09/2025 8:52 AM Age: 74 years old Clinical indication: Callback for a questionable mass in the left upper outer quadrant middle depth. TECHNIQUE: Imaging protocol: Complete ultrasound of all four quadrants of the left breast and the retroareolar regions, including ultrasound of the axilla when performed. Left Diagnostic tomosynthesis and 2D mammography including computer-aided detection (CAD) when performed. Unilateral or bilateral exam. This study was interpreted in real time. The patient received the results. COMPARISON: MG MM DIG MAMM DX UNILAT LT CAD 06/09/2025 7:52 AM FINDINGS: MAMMOGRAPHY: Breast composition: There are scattered areas of fibroglandular density. Breast mammogram findings: No persistent mass, asymmetry, or distortion in the left breast on additional spot compression views. ULTRASOUND: Breast ultrasound findings: Ultrasound of the left upper outer quadrant and left lateral breast demonstrates no underlying mass, shadowing, or distortion. In the retroareolar left breast there is a ductal element that is measured, measuring 0.3 cm. This appears benign. No shadowing or distortion. No axillary adenopathy. IMPRESSION: 1. No findings suspicious for malignancy in the left breast. No persistent mass on mammography. 2. Annual bilateral mammographic screening is recommended unless otherwise clinically indicated. ASSESSMENT: BI-RADS Category 2: Benign.
== END 2025-06-09 23:59 | disposition home or self-care (01) ==
LOC: RAD 07:51
PROVIDERS: PCP Internal Medicine; Visit Provider Internal Medicine
DX: N63.21 Unspecified lump in the left breast, upper outer quadrant (principal); R92.8 Other abnormal and inconclusive findings on diagnostic imaging of breast; R92.322 Mammographic fibroglandular density, left breast
CPT/HCPCS: 76641; 77061; 77065; G0279

== ENCOUNTER 2025-07-18 08:46 | Outpatient (CLI) | payer MEDICARE, BC, SELFPAY ==
--- NOTE | 2025-07-18 08:48 | XR_ITS ---
FINAL REPORT CLINICAL HISTORY: lt knee pain FINDINGS: LEFT KNEE 4 views of the left knee were obtained. There is no acute fracture or dislocation. There are severe degenerative changes. There is mild lateral subluxation. Soft tissues are unremarkable. IMPRESSION: Severe degenerative changes with mild lateral subluxation. No acute bony abnormality. Reviewed, Interpreted and Dictated by Shaneka Stephens MD Transcribed by Jazmine Campo Authenticated and [facility]
--- OUTSIDE RECORDS SUMMARY | 2025-07-18 08:50 | XMS_ITS | Clinical Summary ---
Author Organization [facility] Address [address] [place] [address] Phone Care Team Providers Care Staying Machine Operator Name Role Phone Bindu Rose MD [place] Primary Care Provider + Allergies Active Allergy [...] DRILLING ; Surgeon: Brayan Tellez MD; Location: [facility]; Service: Orthopedics KNEE ARTHROSCOPY 05/06/2012 Knee/Right RIGHT KNEE ARTHROSCOPY DEBRIDEMENT PARTIAL MEDIAL MENISECTOMY, CHONDROPLASTY AND SUBCHONDRAL DRILLING OF MULTIPLE ARTICULAR SURFACES; Surgeon: Brayan Tellez MD; Location: [facility]; Service: Orthopedics TOTAL KNEE ARTHROPLASTY 06/10/2016 Right RIGHT TOTAL KNEE ARTHROPLASTY ; Surgeon: Brayan Tellez MD; Location: [facility]; Service: Orthopedics Medical devices from this surgery [...] this topic Medical Devices Implanted Type Area Fur Joiner Device Identifier Shelf Expiration Date Model / Serial / Lot Palacos R & G Bone Cement With Gentamycin - [id number] Implanted:Qty: 1 on 06/10/2016 by Brayan Tellez MD at [facility] Right: Knee JESSICA:JESSICA 12/26/2019 1113-140-0 / [id number] Patella All Poly Cemented Persona 29mm 8.0mm Thickness - [id number] Implanted:Qty: 1 on 06/10/2016 by Brayan Tellez MD at [facility] Right: Knee JESSICA:JESSICA 04/26/2024 42-5400-00 0-29 / / [id number] Femur Tm Cr Persona Standard Porous Right Size 6 - [id number] Implanted:Qty: 1 on 06/10/2016 by Brayan Tellez MD at [facility] Right: Knee JESSICA:JESSICA 04/26/2025 42-5028-06 0-02 / / [id number] Component Tibia Cemented Stemmed Persona 5 Degree Rgt Size D - [id number] Implanted:Qty: 1 on 06/10/2016 by Brayan Tellez MD at [facility] Right: Knee JESSICA:JESSICA 05/27/2026 42-5320-06 01-26 [id number] Surface Articular Cr Fixed Bearing Persona Right 11 Mm - [id number] Implanted:Qty: 1 on 06/10/2016 by Brayan Tellez MD at [facility] Right: Knee JESSICA:JESSICA 06/26/2019 42-5220-00 11-05 [id number] Insurance [place]ARE [place] PART [place] B MEDIC[place] SUPPLEMENT [place]ARE [place] MED[place]ARE [place] Advance Directives For more information, please contact: [phone] * Full Code (Latest Code Status on File) Date Activated Date Inactivated Comments 06/10/2016 10:29 PM 06/12/2016 4:31 PM Care Teams Staying Machine Operator Relationship Specialty Start Date End Date Pratik Ruano MD [address] [place] [phone] PCP - General 04/23/10
--- OUTSIDE RECORDS SUMMARY | 2025-07-18 08:50 | XMS_ITS | Encounter Summary ---
Author Organization Healthcare Address [address] [place] [address] Care Team Providers Care Software Development Engineer Name Role Phone Pcp, No Primary Care Provider Unavailabl e Encounter Details Date Type Department Care Team (Late st Contact Info) Description 03/12/2022 Ophth Exam [facility] [address] [place] [address] Gurinder Talbot MD [address] [place] [address] Social History Tobacco Use Types Packs/Day Years [...] on filedocumented in this encounter Care Teams Software Development Engineer Relationship Specialty Start Date End Date Pcp, No [address] [place] [address] PCP - General Family Medicine 03/12/22 documented as of this encounter
--- OUTSIDE RECORDS SUMMARY | 2025-07-18 08:50 | XMS_ITS | Clinical Summary ---
Author Organization [facility] Address [facility] [place] [address] Care Team Providers Care Records Officer Name Role Phone Pcp, No Primary Care [...] or (1 - 1-dose 75+ series) 2024 [id number] Vaccine (2 - 2024- season) 2025 10/25/2020 [facility]-Influenza Vaccine (#1) 03/28/202505/04, 04/11/2020, 05/23/2016, Additional history exists HPV Vaccines (No Doses Required) Completed [facility]-HIB Vaccines Aged Out No longer e [...] complete this topic Insurance MEDICARE [facility] Care Teams Records Officer Relationship Specialty Start Date End Date Pcp, Shirlene [address] [place] [address] PCP - General Family Medicine 03/12/22
== END 2025-07-18 23:59 ==
LOC: RAD 08:48
PROVIDERS: PCP Internal Medicine; Visit Provider Physician Assistant
DX: M17.12 Unilateral primary osteoarthritis, left knee (principal)
CPT/HCPCS: 73562